=== PATIENT | male | born 1985 | race Caucasian/White ===

== ENCOUNTER 2016-10-08 09:22 | Emergency (ER) | payer SELFPAY ==
[~2016-10-08] VITALS: Ht 177.8 cm; Wt 77.1 kg
[~2016-10-08 09:22] MED LIST: DICY10CA53 PO; DICY20TA3 PO; ONDA4TAB10 SL
[2016-10-08 09:54] VITALS: BP 155/88
--- NOTE | 2016-10-08 10:38 | PHYS DOC ---
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 Patient states that he has had pain for the past 2 months and was previously diagnosed with pancreatitis. The patient states that over the past 24 hours he has had worsening symptoms. The patient was recently seen at [facility] one week ago and was prescribed Vicoprofen which she stated initially help with pain, however he has run out of this medication and has not been getting adequate pain control with use of ibuprofen. Patient rates his pain currently as 9 out of 10. Patient states that the pain stays in his epigastric area of the belly and radiates towards his left. Patient denies any associated fevers. Patient has had intermittent vomiting but has not had any vomiting over the past 24 hours. Patient denies any bloody stools. The patient states that he is scheduled to see a GI specialist on October 11, however due to worsening pain he stated he would not be able to make it this appointment and came to the emergency department for evaluation. Review of Systems Review of Systems Constitutional: Denies fever or chills [] Eyes: Denies change in visual acuity, redness, or eye pain [] HENT: Denies nasal congestion or sore throat [] Respiratory: Denies cough or shortness of breath [] Cardiovascular: Denies chest pain or edema [] GI: Abdominal pain, nausea, denies bloody stools or diarrhea [] : Denies dysuria or hematuria [] Musculoskeletal: Denies back pain or joint pain [] Integument: Denies rash or skin lesions [] Neurologic: Denies headache, focal weakness or sensory changes [] Current Medications Current Medications Current Medications Medications (Trade) Dose Ordered Sig/Kiya Start Time Stop Time Status Last Admin Dose Admin Famotidine (Pepcid) 20 mg 1X ONCE 10/08/16 11:15 10/08/16 11:16 DC 10/08/16 11:11 20 MG Fentanyl Citrate 50 mcg 50 mcg PRN Q15MIN PRN 10/08/16 11:00 10/09/16 10:59 10/08/16 12:05 50 MCG Ondansetron HCl (Zofran) 4 mg 1X ONCE 10/08/16 11:15 10/08/16 11:16 DC 10/08/16 11:11 4 MG Sodium Chloride (Iv Sodium Chloride 0.9% 1000ml Bag) 1,000 ml @ 1,000 mls/hr Q1H 10/08/16 11:15 10/08/16 12:14 DC 10/08/16 11:10 1,000 MLS/HR Allergies Allergies Allergies Coded Allergies Type Severity Reaction Last Updated Verified Penicillins Allergy Intermediate Rash 07/05/16 Yes amoxicillin trihydrate Allergy Intermediate Rash 07/05/16 Yes potassium clavulanate Allergy Intermediate Rash 07/05/16 Yes tramadol Allergy Intermediate "MASSIVE H/A, HIVES, RASH,VOMITING 12/05/15 Yes acetaminophen Adverse Reaction Intermediate nausea 07/05/16 Yes Physical Exam Physical Exam Constitutional: Alert, afebrile, appears in mild to moderate discomfort. [] HENT: Normocephalic, atraumatic, bilateral external ears normal, oropharynx moist, no oral exudates, nose normal. [] Eyes: PERRLA, EOMI, conjunctiva normal, no discharge. [] Neck: Normal range of motion, no tenderness, supple, no stridor. [] Cardiovascular:Heart rate regular rhythm, no murmur [] Lungs & Thorax: Bilateral breath sounds clear to auscultation [] Abdomen: Bowel sounds normal, soft, epigastric and left upper quadrant tenderness to palpation, mild guarding, no rebound tenderness, no masses, no pulsatile masses. [] Skin: Warm, dry, no erythema, no rash. [] Back: No tenderness, no CVA tenderness. [] Extremities: No tenderness, no cyanosis, no clubbing, ROM intact, no edema. [] Neurologic: Alert and oriented X 3, normal motor function, normal sensory function, no focal deficits noted. [] Current Patient Data Vital Signs Vital Signs Date Time Temp Pulse Resp B/P Pulse Ox O2 Delivery O2 Flow Rate FiO2 10/08/16 09:54 97.6 110 20 155/88 97 Room Air 97.6 Lab Values Laboratory Tests Test 10/08/16 09:45 10/08/16 11:00 Urine Collection Type Unknown Urine Color Yellow Urine Clarity Clear Urine pH 6.5 Urine Specific [place] <=1.005 Urine Protein Negativemg/dL (NEG-TRACE) Urine Glucose (UA) Negativemg/dL (NEG) Urine Ketones (Stick) Negativemg/dL (NEG) Urine Blood Negative (NEG) Urine Nitrite Negative (NEG) Urine Bilirubin Negative (NEG) Urine Urobilinogen Dipstick 0.2mg/dL (0.2 mg/dL) Urine Leukocyte Esterase Negative (NEG) Urine RBC 0/HPF (0-2) Urine WBC 0/HPF (0-4) Urine Squamous Epithelial Cells Occ/LPF Urine Bacteria 0/HPF (0-FEW) White Blood Count 5.5x10^3/uL (4.0-11.0) Red Blood Count 4.81x10^6/uL (4.30-5.70) Hemoglobin 15.3g/dL (13.0-17.5) Hematocrit 44.2% (39.0-53.0) Mean Corpuscular Volume 92fL (79-100) Mean Corpuscular Hemoglobin 32pg (25-35) Mean Corpuscular Hemoglobin Concent 35g/dL (31-37) Red Cell Distribution Width 13.4% (11.5-14.5) Platelet Count 206x10^3/uL (140-400) Neutrophils (%) (Auto) 55% (31-73) Lymphocytes (%) (Auto) 36% (24-48) Monocytes (%) (Auto) 8% (0-9) Eosinophils (%) (Auto) 1% (0-3) Basophils (%) (Auto) 1% (0-3) Neutrophils # (Auto) 3.0x10^3uL (1.8-7.7) Lymphocytes # (Auto) 2.0x10^3/uL (1.0-4.8) Monocytes # (Auto) 0.4x10^3/uL (0.0-1.1) Eosinophils # (Auto) 0.0x10^3/uL (0.0-0.7) Basophils # (Auto) 0.0x10^3/uL (0.0-0.2) Sodium Level 141mmol/L (136-145) Potassium Level 4.7mmol/L (3.5-5.1) Chloride Level 105mmol/L (98-107) Carbon Dioxide Level 29mmol/L (21-32) Anion Gap 7 (6-14) Blood Urea Nitrogen 10mg/dL (8-26) Creatinine 1.2mg/dL (0.7-1.3) Estimated GFR (Cockcroft-Gault) 71.1 BUN/Creatinine Ratio 8 (6-20) Glucose Level 82mg/dL (70-99) Calcium Level 9.7mg/dL (8.5-10.1) Total Bilirubin 0.6mg/dL (0.2-1.0) Aspartate Amino Transferase (AST) 31U/L (15-37) Alanine Aminotransferase (ALT) 32U/L (16-63) Alkaline Phosphatase 64U/L (46-116) Total Protein 8.6g/dL (6.4-8.2) H Albumin 3.9g/dL (3.4-5.0) Albumin/Globulin Ratio 0.8 (1.0-1.7) L Lipase 1100U/L (73-393) H Laboratory Tests 10/08/16 11:00 Laboratory Tests 10/08/16 11:00 EKG EKG Not performed [] Radiology/Procedures Radiology/Procedures Not performed [] Course & Med Decision Making Course & Med Decision Making Pertinent Labs and Imaging studies reviewed. (See chart for details) Patient was treated with IV Zofran, fentanyl, and IV fluids. The patient on reevaluation has improvement in pain. The patient's lipase levels were 1100 today. The patient states that he has an appointment in the next 3 days with gastroenterology. Advised the patient to continue that appointment for further evaluation. The patient will be prescribed a small amount of [place] for the next 3 days until he has gone to his appointment. Advised return emergency department for any worsening symptoms. Patient voiced understanding and in agreement with treatment plan. Dragon Disclaimer Dragon Disclaimer This electronic medical record was generated, in whole or in part, using a voice recognition dictation system. Departure Departure Impression: Primary Impression: Pancreatitis Disposition: 01 HOME, SELF-CARE Condition: IMPROVED Referrals: NO PCP (PCP) Patient Instructions: Acute Pancreatitis Additional Instructions: Follow-up with your storage battery charger in 3 days as scheduled. Return to the emergency department for any worsening symptoms. Scripts Hydrocodone/Apap 5-325 ([place] 5-325 Tablet)1 Each Tablet1-2 Tab PO Q4-6HRS PRN PAIN #20 TAB Prov:ISABEL MCGRATH MD 10/08/16 Problem Qualifiers Primary Impression: Pancreatitis Chronicity: chronic Pancreatitis type: unspecified pancreatitis type Qualified Code: K86.1 - Other chronic pancreatitis ISABEL MCGRATH MD Oct 08, 2016 10:38
[2016-10-08 11:09] LABS: BILIRUBIN,URINE NEGATIVE (NEG); GLUCOSE,URINE NEGATIVE (NEG); NITRITE,URINE NEGATIVE (NEG); PH,URINE 6.5; PROTEIN,URINE NEGATIVE (NEG-TRACE); UROBILINOGEN,URINE 0.2 mg/dL (0.2 mg/dL)
[2016-10-08] MEDS: FENTANYL PF 100 MCG/2 ML VIAL. IV PRN ×2 (11:11→12:05)
[2016-10-08] MEDS ORDERED: FAMOTIDINE 20 MG/2 ML VIAL IVP ONE (11:15)
[2016-10-08] MEDS ORDERED: ONDANSETRON PF 4 MG/2 ML VIAL. IV ONE (11:15)
[2016-10-08] MEDS ORDERED: IV NORMAL SALINE 1000ML BAG 1,000 ML IV SCH (11:15)
[2016-10-08 11:18] LABS: BACTERIA,URINE 0 /HPF (0-FEW); RBC,URINE 0 /HPF (0-2); SQUAMOUS EPITHELIAL CELL,UR OCC /LPF; WBC,URINE 0 /HPF (0-4)
[2016-10-08 11:25] LABS: CALCIUM 9.7 mg/dL (8.5-10.1); CREATININE 1.2 mg/dL (0.7-1.3); GFR 71.1; POTASSIUM 4.7 mmol/L (3.5-5.1)
[2016-10-08 11:27] LABS: ALBUMIN 3.9 g/dL (3.4-5.0); ALBUMIN/GLOBULIN RATIO 0.8 (1.0-1.7); TOTAL BILIRUBIN 0.6 mg/dL (0.2-1.0); TOTAL PROTEIN 8.6 g/dL (6.4-8.2)
[2016-10-08 11:31] LABS: BASO % 1 % (0-3); EOS % 1 % (0-3); HEMATOCRIT 44.2 % (39.0-53.0); HEMOGLOBIN 15.3 g/dL (13.0-17.5); LYMPH % 36 % (24-48); MEAN CORPUSCULAR HEMOGLOBIN 32 pg (25-35); MEAN CORPUSCULAR HGB CONC 35 g/dL (31-37); MEAN CORPUSCULAR VOLUME 92 fL (79-100); MONO % 8 % (0-9); NEUT % 55 % (31-73); PLATELET COUNT 206 x10^3/uL (140-400); RED BLOOD COUNT 4.81 x10^6/uL (4.30-5.70); RED CELL DISTRIBUTION WIDTH 13.4 % (11.5-14.5); WHITE BLOOD COUNT 5.5 x10^3/uL (4.0-11.0)
[2016-10-08] MEDS ORDERED: HYDR-971 PO (13:14)
== END 2016-10-08 13:29 | disposition home or self-care (01) ==
LOC: ER 09:22
DX: K85.90 Acute pancreatitis without necrosis or infection, unspecified (principal); K58.9 Irritable bowel syndrome, unspecified; F12.10 Cannabis abuse, uncomplicated; Z88.0 Allergy status to penicillin; Z88.1 Allergy status to other antibiotic agents; Z88.6 Allergy status to analgesic agent; Z88.8 Allergy status to other drugs, medicaments and biological substances
CPT/HCPCS: 36415; 80053; 81001; 83690; 85027; 96361; 96374; 96375; 96376; 99284; J2405; J3010; J7030; S0028

== ENCOUNTER 2016-10-16 13:57 | Inpatient (IN) | payer SELFPAY ==
[~2016-10-16] VITALS: Ht 177.8 cm; Wt 73.9 kg
[~2016-10-16 13:57] MED LIST changes: +HYDR-971 PO
[2016-10-16] MEDS ORDERED: ONDANSETRON PF 4 MG/2 ML VIAL. IV ONE (16:15)
[2016-10-16] MEDS ORDERED: IV NORMAL SALINE 1000ML BAG 1,000 ML IV ONE (16:15)
[2016-10-16] MEDS ORDERED: FENTANYL PF 100 MCG/2 ML VIAL. IV ONE (16:15)
[2016-10-16] MEDS ORDERED: KETOROLAC 15 MG/ML VIAL. IV ONE (16:15)
[2016-10-16 16:36] LABS: ANION GAP 6 (6-14); BLOOD UREA NITROGEN 17 mg/dL (8-26); CALCIUM 9.5 mg/dL (8.5-10.1); CARBON DIOXIDE 29 mmol/L (21-32); CHLORIDE 106 mmol/L (98-107); GFR 87.7; GLUCOSE 88 mg/dL (70-99); POTASSIUM 4.6 mmol/L (3.5-5.1); SODIUM 141 mmol/L (136-145)
[2016-10-16 16:42] LABS: ALBUMIN 4.1 g/dL (3.4-5.0); ALK PHOS 65 U/L (46-116); ALT (SGPT) 24 U/L (16-63); AST (SGOT) 16 U/L (15-37); DIRECT BILIRUBIN < 0.1 mg/dL (0.0-0.2); TOTAL BILIRUBIN 0.7 mg/dL (0.2-1.0); TOTAL PROTEIN 8.1 g/dL (6.4-8.2)
[2016-10-16] MEDS ORDERED: IOHEXOL 300 MG/ML 75 ML VIAL IV ONE (17:45)
[2016-10-16] MEDS ORDERED: CONTRAST GIVEN MC PRN (17:45)
--- NOTE | 2016-10-16 17:53 | PHYS DOC ---
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 Alcohol Use: None Drug Use: Marijuana Social History Narrative: Today,10/16/16 pt denies Drug Use. Adult General Chief Complaint Chief Complaint: ABDOMINAL PAIN HPI HPI Patient is a 30 year old male who presents with left upper quadrant abdominal pain that is constant and severe exactly like his prior pancreatitis pain. States his pain is achy and nonradiating. He was diagnosed with pancreatitis in June 2016 and has had intermittent symptoms since that time. Most notably, he was seen here on 10/08/16 and diagnosed with pancreatitis. At that time, he elected for outpatient therapy. He saw his GI doctor and maintained a clear liquid diet at home. He did have some improvement with his symptoms, but now they're worse in the past few days. States he has run out of pain medication which makes his pain was intolerable now. Denies fever or chills, nausea or vomiting, diarrhea, dysuria. States he is supposed to see a pain clinic for pain management, but he cannot see them until October. Review of Systems Review of Systems Constitutional: Denies fever or chills [] Eyes: Denies change in visual acuity, redness, or eye pain [] HENT: Denies nasal congestion or sore throat [] Respiratory: Denies cough or shortness of breath [] Cardiovascular: No additional information not addressed in HPI [] GI: Denies nausea, vomiting, bloody stools or diarrhea [] : Denies dysuria or hematuria [] Musculoskeletal: Denies back pain or joint pain [] Integument: Denies rash or skin lesions [] Neurologic: Denies headache, focal weakness or sensory changes [] Endocrine: Denies polyuria or polydipsia [] Current Medications Current Medications Current Medications Medications (Trade) Dose Ordered Sig/Kiya Start Time Stop Time Status Last Admin Dose Admin Fentanyl Citrate (Fentanyl 2ml Vial) 75 mcg 1X ONCE 10/16/16 16:15 10/16/16 16:16 DC Info (Do NOT chart on this entry -- for MONITORING) 1 each PRN DAILY PRN 10/16/16 17:45 10/18/16 17:44 Iohexol (Omnipaque 300 Mg/ml) 75 ml 1X ONCE 10/16/16 17:45 10/16/16 17:46 Ketorolac Tromethamine (Toradol) 15 mg 1X ONCE 10/16/16 16:15 10/16/16 16:16 DC Ondansetron HCl (Zofran) 4 mg 1X ONCE 10/16/16 16:15 10/16/16 16:16 DC Sodium Chloride (Iv Sodium Chloride 0.9% 1000ml Bag) 1,000 ml @ 1,000 mls/hr 1X ONCE 10/16/16 16:15 10/16/16 17:14 DC Allergies Allergies Allergies Coded Allergies Type Severity Reaction Last Updated Verified Penicillins Allergy Intermediate Rash 07/05/16 Yes amoxicillin trihydrate Allergy Intermediate Rash 07/05/16 Yes potassium clavulanate Allergy Intermediate Rash 07/05/16 Yes tramadol Allergy Intermediate "MASSIVE H/A, HIVES, RASH,VOMITING 12/05/15 Yes acetaminophen Adverse Reaction Intermediate nausea 07/05/16 Yes Physical Exam Physical Exam Constitutional: Well developed, well nourished, no acute distress, non-toxic appearance. [] HENT: Normocephalic, atraumatic, bilateral external ears normal, oropharynx moist, nose normal. [] Eyes: PERRLA, EOMI. [] Neck: Normal range of motion, supple. [] Cardiovascular:Heart rate regular rhythm [] Lungs & Thorax: Bilateral breath sounds clear to auscultation [] Abdomen: Bowel sounds normal, soft, moderate epigastric and left upper quadrant tenderness tenderness, no guarding or rebound. [] Skin: Warm, dry, no erythema, no rash. [] Back: No tenderness, no CVA tenderness. [] Extremities: ROM intact, no edema. [] Neurologic: Alert and oriented X 3, normal motor function, normal sensory function, no focal deficits noted. [] Psychologic: Affect normal, judgement normal, mood normal. [] Current Patient Data Vital Signs Vital Signs Date Time Temp Pulse Resp B/P Pulse Ox O2 Delivery O2 Flow Rate FiO2 10/16/16 14:50 98.5 91 20 158/85 99 Room Air 98.5 Lab Values Laboratory Tests Test 10/16/16 15:39 Sodium Level 141mmol/L (136-145) Potassium Level 4.6mmol/L (3.5-5.1) Chloride Level 106mmol/L (98-107) Carbon Dioxide Level 29mmol/L (21-32) Anion Gap 6 (6-14) Blood Urea Nitrogen 17mg/dL (8-26) Creatinine 1.0mg/dL (0.7-1.3) Estimated GFR (Cockcroft-Gault) 87.7 Glucose Level 88mg/dL (70-99) Calcium Level 9.5mg/dL (8.5-10.1) Total Bilirubin 0.7mg/dL (0.2-1.0) Direct Bilirubin < 0.1mg/dL (0.0-0.2) Aspartate Amino Transferase (AST) 16U/L (15-37) Alanine Aminotransferase (ALT) 24U/L (16-63) Alkaline Phosphatase 65U/L (46-116) Total Protein 8.1g/dL (6.4-8.2) Albumin 4.1g/dL (3.4-5.0) Lipase 664U/L (73-393) H Laboratory Tests 10/16/16 15:39 Course & Med Decision Making Course & Med Decision Making Pertinent Labs and Imaging studies reviewed. (See chart for details) He has persistent elevation in his lipase and has tried home therapy of which is not controlling his symptoms. Will admit for pain control. Discussed the case with Dr. Castrejon, who will admit and recommends repeat abdominal CT. Dragon Disclaimer Dragon Disclaimer This electronic medical record was generated, in whole or in part, using a voice recognition dictation system. Departure Departure Impression: Primary Impression: Pancreatitis Disposition: 09 ADMITTED INPATIENT Condition: STABLE Referrals: NO PCP (PCP) Problem Qualifiers Primary Impression: Pancreatitis Chronicity: acute Pancreatitis type: unspecified pancreatitis type Acute pancreatitis complication: unspecified Qualified Code: K85.90 - Acute pancreatitis without necrosis or infection, unspecified Derrick COVARRUBIAS MD Oct 16, 2016 17:53
--- NOTE | 2016-10-16 18:21 | RAD ---
PROCEDURE CT abdomen and pelvis with contrast HISTORY Left upper abdominal pain nausea and elevated lipase TECHNIQUE After IV infusion of95 cc of Optiray-320, helical CT scanning of the abdomen and pelvis was performed.GI contrast was not administered. COMPARISON July 05, 2016 FINDINGS The liveer is homogeous in appearance and normal in size. The spleen is unremarkable and normal in size. The pancreas is homogeneous in appearance and no focal enlargement is seen. The gallbladder appears normal and no intra or extrahepatic biliary ductal dilatation is seen. No focal aneurysmal dilatation of the abdominal aorta is seen. No enlarged abdominal or pelvic lymphadenopathy is seen. No soft tissue mass is seen. No obstructive bowel pattern or bowel wall thickening or inflammatory change is seen. No free intraperitoneal fluid or abscess or free intraperitoneal air is seen. The lung bases are clear. Both kidneys are functioning and no hydronephrosis or renal mass or perinephric fluid collection is seen. The urinary bladder is partially collapsed. Apparent mild wall thickening is felt to be secondary nondistention. No adrenal masses are seen. No osteolytic process is seen. The appendix is normal. IMPRESSION No significant CT abnormality of the abdomen or the pelvis is seen. Electronically signed by: Juan Carranza MD (Oct 16, 2016 18:20:57)
[2016-10-16] MEDS ORDERED: ONDANSETRON PF 4 MG/2 ML VIAL. IV PRN ×2 (19:00→20:00)
[2016-10-16 19:39] VITALS: BP 151/94
[2016-10-16] MEDS ORDERED: ACETAMINOPHEN 325 MG TABLET. PO PRN (20:00)
[2016-10-16] MEDS ORDERED: hydrALAZINE 20 MG/ML VIAL. IVP PRN (20:00)
[2016-10-16] MEDS ORDERED: HYDROCODONE/APAP 5/325MG TABLET. PO PRN (20:00)
[2016-10-16] MEDS ORDERED: MORPHINE SULFATE 2 MG/ML DISP.SYRIN. IV PRN (20:00)
[2016-10-16] MEDS ORDERED: ALBUTEROL SULFATE 2.5 MG/3 ML NEBU. NEB PRN (20:00)
[2016-10-16] MEDS ORDERED: NICOTINE 21MG PATCH. TD PRN (20:15)
[2016-10-16] MEDS: IV NORMAL SALINE 1000ML BAG 1,000 ML IV SCH (20:42)
--- NOTE | 2016-10-16 22:19 | PDOC ---
Provider Note Provider Note HP dictated. HANNA GARCIA MD Oct 16, 2016 22:19
[2016-10-16] MEDS: FENTANYL PF 100 MCG/2 ML VIAL. IV PRN (22:24)
[2016-10-16 23:00] VITALS: BP 139/87
--- NOTE | 2016-10-16 23:09 | HP ---
ADMIT DATE: 10/16/2016 TIME: 07:20 p.m. CHIEF COMPLAINT: Abdominal pain. HISTORY OF PRESENT ILLNESS: A 30-year-old male patient presented to the ER with epigastric and left upper quadrant abdominal pain, which is similar to his previous pancreatitis pain. The patient was first diagnosed with pancreatitis in 06/2016, and later, he is having intermittent pain and he was following a GI doctor who started him on a clear liquid diet; however, he could not able to control his pain as the patient did not have a family doctor. Today, the patient says his pain is intractable in nature and located in the epigastric and left upper quadrant, sometimes radiating to the back, controlled with IV pain medications in the ER. He denies any noncompliance. He stopped drinking alcohol from 05/2016. PAST MEDICAL HISTORY: Irritable bowel syndrome, pancreatitis and questionable cancer. 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 PERSONAL HISTORY: Smokes marijuana and cigarettes. No alcohol. FAMILY HISTORY: Cancer from maternal side. REVIEW OF SYSTEMS: CONSTITUTIONAL: No fever or chills. EYES: No recent vision changes. SKIN: No rash or itching. CARDIOVASCULAR: No chest pain, syncope, palpitations or edema. RESPIRATORY: No shortness of breath, cough. GASTROINTESTINAL: Abdominal pain and nausea. NEUROLOGICAL: No headache, paralysis. ENDOCRINOLOGIC: No cold or heat intolerance. GENITOURINARY: No burning with urination, no urgency. MUSCULOSKELETAL: No back pain or joint pain. LYMPHATICS: No enlarged nodes. PSYCHIATRIC: No anxiety or depression. HOME MEDICATIONS: Reviewed and reconciled. Please see MRAD. ALLERGIES: PENICILLIN, AMOXICILLIN, POTASSIUM, TRAMADOL AND ACETAMINOPHEN. PHYSICAL EXAMINATION: GENERAL: No apparent distress. HEENT: Head normocephalic, atraumatic. Eyes: PERRLA, EOMI. NECK: Supple. LUNGS: Clear to auscultation. HEART: Regular rate and rhythm; S1, S2 present; pulses intact. ABDOMEN: Epigastric tenderness present. Bowel sounds present. No guarding, no rigidity. EXTREMITIES: No cyanosis or edema. NEUROLOGIC: Normal speech and normal tone; alert and oriented. PSYCHIATRIC: Normal affect, normal mood. SKIN: No ulceration. VITAL SIGNS: Temperature 98.5, pulse is 91, respirations 20, blood pressure 158/85, pulse ox 99% on room air. LABORATORY FINDINGS: Sodium 141, potassium 4.6, chloride 106, carbon dioxide 20, anion gap is 6, BUN is 17, creatinine 1.0, and lipase 664. CBC is not done. IMAGING STUDIES: CT of the abdomen and pelvis showed no significant CT changes. ASSESSMENT: 1. [id number] pancreatitis, intractable pain. 2. History of irritable bowel syndrome. 3. Nicotine use. PLAN: 1. Admit the patient and keep him n.p.o. ____ IV hydration at 100 mL per hour. 2. Consultation, Gastroenterology for further recommendations. 3. Imaging studies did not show any pancreatic pseudocyst. 4. Pain control with IV morphine. Avoid CO2 narcosis. 5. If symptoms improve, try clear liquids from a.m. 6. Prognosis guarded. Nicotine patch p.r.n. HANNA GARCIA MD DR: JACE/niranjan JOB#: [id number] / [id number]
[2016-10-17] MEDS: FENTANYL PF 100 MCG/2 ML VIAL. IV PRN ×4 (01:00→10:41)
[2016-10-17 03:00] VITALS: BP 116/69
[2016-10-17] MEDS: IV NORMAL SALINE 1000ML BAG 1,000 ML IV SCH ×2 (04:54→16:00)
[2016-10-17 05:04] LABS: BASO % 0 % (0-3); EOS % 2 % (0-3); HEMATOCRIT 40.3 % (39.0-53.0); HEMOGLOBIN 13.6 g/dL (13.0-17.5); LYMPH # 2.5 x10^3/uL (1.0-4.8); LYMPH % 44 % (24-48); MEAN CORPUSCULAR HEMOGLOBIN 31 pg (25-35); MEAN CORPUSCULAR HGB CONC 34 g/dL (31-37); MEAN CORPUSCULAR VOLUME 92 fL (79-100); MONO % 7 % (0-9); NEUT % 47 % (31-73); PLATELET COUNT 171 x10^3/uL (140-400); RED BLOOD COUNT 4.38 x10^6/uL (4.30-5.70); RED CELL DISTRIBUTION WIDTH 13.1 % (11.5-14.5); WHITE BLOOD COUNT 5.9 x10^3/uL (4.0-11.0)
[2016-10-17 05:35] LABS: CALCIUM 9.1 mg/dL (8.5-10.1); GFR 87.7; POTASSIUM 4.2 mmol/L (3.5-5.1)
[2016-10-17 07:48] VITALS: BP 124/74
[2016-10-17] MEDS: DICYCLOMINE HCL 10 MG CAPSULE PO SCH ×3 (08:15→16:40)
--- NOTE | 2016-10-17 09:45 | PDOC2 ---
GI CONSULT Reason For Consult: Pancreatitis HPI: HPI: 30 y/o male w/ h/o alcoholic pancreatitis diagnosed in 06/2016. Since then has had ongoing issues w/ LUQ pain radiating to upper back and vomiting. Was seen in the ER on 10/08/16 and returned last night. On this occasion, lipase 664 ( was 34029 last week) w/ normal LFTs. CT w/ IV contrast shows normal pancreas. Last week tried to keep to a liquid diet but got to hungry and started eating [place] food which made symptoms worse. Has been NPO this morning and feels hungry. Used to drink whiskey heavily but has been sober x 6 months. H/o reflux from age 17 that is rarely bothersome, untreated. No previous EGD. H/o IBS w/ alternating constipation and diarrhea. Reports three previous colonoscopies for this. Has tried ibuprofen 800mg BID at home but found hydrocodone more effective for pain. Denies hematemesis, hematochezia, melena. Used to work at [employer] but had to quit due to ongoing symptoms; is now unable to walk the 5 miles to work. PMH: PMH: IBS-M, removal of acoustic neuroma, eye surgery FH: Family History: No pertinent hx Social History: Smoke: <1 pack per day ALCOHOL: other (previous drank boubon - "a handle plus a 1/5" daily - sober x 6 months) Drugs: Other (previous marijuana) ROS: GEN: Denies fevers, chills, sweats HEENT: Denies blurred vision, sore throat CV: Denies chest pain RESP: Denies shortness of air, cough GI: Per HPI : Denies hematuria, dysuria ENDO: Denies weight changes NEURO: Denies confusion, dizziness MSK: Denies weakness, joint pain/swelling SKIN: Denies jaundice, pruritus VItals: Vitals: Vital Signs Date Time Temp Pulse Resp B/P Pulse Ox O2 Delivery O2 Flow Rate FiO2 10/17/16 08:55 95 Room Air 10/17/16 07:48 97.6 85 16 124/74 97.6 Labs: Labs: Laboratory Tests Test 10/16/16 15:39 10/17/16 04:30 10/17/16 04:35 Sodium Level 141mmol/L (136-145) 144mmol/L (136-145) Potassium Level 4.6mmol/L (3.5-5.1) 4.2mmol/L (3.5-5.1) Chloride Level 106mmol/L (98-107) 109mmol/L (98-107) Carbon Dioxide Level 29mmol/L (21-32) 27mmol/L (21-32) Anion Gap 6 (6-14) 8 (6-14) Blood Urea Nitrogen 17mg/dL (8-26) 14mg/dL (8-26) Creatinine 1.0mg/dL (0.7-1.3) 1.0mg/dL (0.7-1.3) Estimated GFR (Cockcroft-Gault) 87.7 87.7 Glucose Level 88mg/dL (70-99) 90mg/dL (70-99) Calcium Level 9.5mg/dL (8.5-10.1) 9.1mg/dL (8.5-10.1) Total Bilirubin 0.7mg/dL (0.2-1.0) Direct Bilirubin < 0.1mg/dL (0.0-0.2) Aspartate Amino Transf (AST/SGOT) 16U/L (15-37) Alanine Aminotransferase (ALT/SGPT) 24U/L (16-63) Alkaline Phosphatase 65U/L (46-116) Total Protein 8.1g/dL (6.4-8.2) Albumin 4.1g/dL (3.4-5.0) Lipase 664U/L (73-393) White Blood Count 5.9x10^3/uL (4.0-11.0) Red Blood Count 4.38x10^6/uL (4.30-5.70) Hemoglobin 13.6g/dL (13.0-17.5) Hematocrit 40.3% (39.0-53.0) Mean Corpuscular Volume 92fL (79-100) Mean Corpuscular Hemoglobin 31pg (25-35) Mean Corpuscular Hemoglobin Concent 34g/dL (31-37) Red Cell Distribution Width 13.1% (11.5-14.5) Platelet Count 171x10^3/uL (140-400) Neutrophils (%) (Auto) 47% (31-73) Lymphocytes (%) (Auto) 44% (24-48) Monocytes (%) (Auto) 7% (0-9) Eosinophils (%) (Auto) 2% (0-3) Basophils (%) (Auto) 0% (0-3) Neutrophils # (Auto) 2.7x10^3uL (1.8-7.7) Lymphocytes # (Auto) 2.5x10^3/uL (1.0-4.8) Monocytes # (Auto) 0.4x10^3/uL (0.0-1.1) Eosinophils # (Auto) 0.1x10^3/uL (0.0-0.7) Basophils # (Auto) 0.0x10^3/uL (0.0-0.2) Allergies: Coded Allergies: Penicillins (Verified Allergy, Intermediate, Rash, 07/05/16) amoxicillin trihydrate (Verified Allergy, Intermediate, Rash, 07/05/16) potassium clavulanate (Verified Allergy, Intermediate, Rash, 07/05/16) tramadol (Verified Allergy, Intermediate, "MASSIVE H/A, HIVES, RASH, VOMITING, 12/05/15) acetaminophen (Verified Adverse Reaction, Intermediate, nausea, 07/05/16) Medications: Current Medications Medications (Trade) Dose Ordered Sig/Kiya Route PRN Reason Start Time Stop Time Status Last Admin Dose Admin Sodium Chloride (Iv Sodium Chloride 0.9% 1000ml Bag) 1,000 ml @ 1,000 mls/hr 1X ONCE IV 10/16/16 16:15 10/16/16 17:14 DC 10/16/16 17:39 Ondansetron HCl (Zofran) 4 mg 1X ONCE IV 10/16/16 16:15 10/16/16 16:16 DC 10/16/16 17:40 Fentanyl Citrate (Fentanyl 2ml Vial) 75 mcg 1X ONCE IV 10/16/16 16:15 10/16/16 16:16 DC 10/16/16 16:15 Ketorolac Tromethamine (Toradol) 15 mg 1X ONCE IV 10/16/16 16:15 10/16/16 16:16 DC 10/16/16 17:44 Iohexol (Omnipaque 300 Mg/ml) 75 ml 1X ONCE IV 10/16/16 17:45 10/16/16 17:46 DC 10/16/16 17:56 Fentanyl Citrate (Fentanyl 2ml Vial) 50 mcg PRN Q2HR PRN IV PAIN 10/16/16 19:00 10/17/16 08:16 Morphine Sulfate 2 mg 2 mg PRN Q2HR PRN IV PAIN 10/16/16 20:00 10/16/16 20:41 Sodium Chloride (Iv Sodium Chloride 0.9% 1000ml Bag) 1,000 ml @ 100 mls/hr Q10H IV 10/16/16 20:00 10/17/16 04:54 Nicotine (Nicoderm Cq 21mg) 1 patch PRN DAILY PRN TD SMOKING CESSATION 10/16/16 20:15 10/16/16 21:31 Imaging: Imaging: CT A/P w/ IV contrast FINDINGS The liver is homogenous in appearance and normal in size. The spleen is unremarkable and normal in size. The pancreas is homogeneous in appearance and no focal enlargement is seen. The gallbladder appears normal and no intra or extrahepatic biliary ductal dilatation is seen. No focal aneurysmal dilatation of the abdominal aorta is seen. No enlarged abdominal or pelvic lymphadenopathy is seen. No soft tissue mass is seen. No obstructive bowel pattern or bowel wall thickening or inflammatory change is seen. No free intraperitoneal fluid or abscess or free intraperitoneal air is seen. The lung bases are clear. Both kidneys are functioning and no hydronephrosis or renal mass or perinephric fluid collection is seen. The urinary bladder is partially collapsed. Apparent mild wall thickening is felt to be secondary nondistention. No adrenal masses are seen. No osteolytic process is seen. The appendix is normal. IMPRESSION No significant CT abnormality of the abdomen or the pelvis is seen. PE: GEN: NAD HEENT: Atraumatic, eyes red LUNGS: CTAB HEART: RRR ABD: NABS, S/ND, LUQ and epigastric discomfort EXTREMITY: No edema SKIN: No rashes, no jaundice NEURO/PSYCH: A & O 3 A/P: A/P: Elevated lipase, h/o alcohol abuse -lipase improved from last ER visit -diagnosed w/ alcoholic pancreatitis in 06/2016 -sober x 6 months -ongoing issues w/ upper abd pain and vomiting H/o IBS-M -reports three previous colonoscopies H/o GERD -- Medical therapy for suspected alcoholic pancreatitis. Okay to try clears today. Will start empiric H2 arsen considering occasional GERD symptoms and h/o NSAID use. CRESCENCIO MALDONADO Oct 17, 2016 09:45
[2016-10-17] MEDS ORDERED: NICOTINE 14MG PATCH. TD PRN (10:30)
[2016-10-17 10:46] VITALS: BP 138/84
[2016-10-17 14:43] VITALS: BP 113/68
--- NOTE | 2016-10-17 15:08 | PDOC ---
PROGRESS NOTES Chief Complaint Chief Complaint acute abdominal pain Elevated lipase, h/o prior alcohol abuse GI consult following IBS? nausea and vomiting GERD History of Present Illness History of Present Illness hold Nsaid start PPI advance diet if tolerable pt OOB to chair, looks better than described yesterday Vitals Vitals Vital Signs Date Time Temp Pulse Resp B/P Pulse Ox O2 Delivery O2 Flow Rate FiO2 10/17/16 15:01 Room Air 10/17/16 14:43 97.7 74 16 113/68 96 97.7 Physical Exam General: Alert, Oriented X3, Cooperative Heart: Regular rate, Normal S1 Lungs: Clear, Wheezing Abdomen: Soft Extremities: No clubbing Labs LABS Laboratory Tests Test 10/16/16 15:39 10/17/16 04:30 10/17/16 04:35 Sodium Level 141mmol/L (136-145) 144mmol/L (136-145) Potassium Level 4.6mmol/L (3.5-5.1) 4.2mmol/L (3.5-5.1) Chloride Level 106mmol/L (98-107) 109mmol/L (98-107) Carbon Dioxide Level 29mmol/L (21-32) 27mmol/L (21-32) Anion Gap 6 (6-14) 8 (6-14) Blood Urea Nitrogen 17mg/dL (8-26) 14mg/dL (8-26) Creatinine 1.0mg/dL (0.7-1.3) 1.0mg/dL (0.7-1.3) Estimated GFR (Cockcroft-Gault) 87.7 87.7 Glucose Level 88mg/dL (70-99) 90mg/dL (70-99) Calcium Level 9.5mg/dL (8.5-10.1) 9.1mg/dL (8.5-10.1) Total Bilirubin 0.7mg/dL (0.2-1.0) Direct Bilirubin < 0.1mg/dL (0.0-0.2) Aspartate Amino Transf (AST/SGOT) 16U/L (15-37) Alanine Aminotransferase (ALT/SGPT) 24U/L (16-63) Alkaline Phosphatase 65U/L (46-116) Total Protein 8.1g/dL (6.4-8.2) Albumin 4.1g/dL (3.4-5.0) Lipase 664U/L (73-393) 296U/L (73-393) White Blood Count 5.9x10^3/uL (4.0-11.0) Red Blood Count 4.38x10^6/uL (4.30-5.70) Hemoglobin 13.6g/dL (13.0-17.5) Hematocrit 40.3% (39.0-53.0) Mean Corpuscular Volume 92fL (79-100) Mean Corpuscular Hemoglobin 31pg (25-35) Mean Corpuscular Hemoglobin Concent 34g/dL (31-37) Red Cell Distribution Width 13.1% (11.5-14.5) Platelet Count 171x10^3/uL (140-400) Neutrophils (%) (Auto) 47% (31-73) Lymphocytes (%) (Auto) 44% (24-48) Monocytes (%) (Auto) 7% (0-9) Eosinophils (%) (Auto) 2% (0-3) Basophils (%) (Auto) 0% (0-3) Neutrophils # (Auto) 2.7x10^3uL (1.8-7.7) Lymphocytes # (Auto) 2.5x10^3/uL (1.0-4.8) Monocytes # (Auto) 0.4x10^3/uL (0.0-1.1) Eosinophils # (Auto) 0.1x10^3/uL (0.0-0.7) Basophils # (Auto) 0.0x10^3/uL (0.0-0.2) Assessment and Plan Assessmemt and Plan DC if able to isaac full liquids in AM Problems Medical Problems: (1) Pancreatitis Status: Acute Problems: Comment Review of Relevant I have reviewed the following items evita (where applicable) has been applied. Labs Laboratory Tests Test 10/16/16 15:39 10/17/16 04:30 10/17/16 04:35 Sodium Level 141mmol/L (136-145) 144mmol/L (136-145) Potassium Level 4.6mmol/L (3.5-5.1) 4.2mmol/L (3.5-5.1) Chloride Level 106mmol/L (98-107) 109mmol/L (98-107) Carbon Dioxide Level 29mmol/L (21-32) 27mmol/L (21-32) Anion Gap 6 (6-14) 8 (6-14) Blood Urea Nitrogen 17mg/dL (8-26) 14mg/dL (8-26) Creatinine 1.0mg/dL (0.7-1.3) 1.0mg/dL (0.7-1.3) Estimated GFR (Cockcroft-Gault) 87.7 87.7 Glucose Level 88mg/dL (70-99) 90mg/dL (70-99) Calcium Level 9.5mg/dL (8.5-10.1) 9.1mg/dL (8.5-10.1) Total Bilirubin 0.7mg/dL (0.2-1.0) Direct Bilirubin < 0.1mg/dL (0.0-0.2) Aspartate Amino Transf (AST/SGOT) 16U/L (15-37) Alanine Aminotransferase (ALT/SGPT) 24U/L (16-63) Alkaline Phosphatase 65U/L (46-116) Total Protein 8.1g/dL (6.4-8.2) Albumin 4.1g/dL (3.4-5.0) Lipase 664U/L (73-393) 296U/L (73-393) White Blood Count 5.9x10^3/uL (4.0-11.0) Red Blood Count 4.38x10^6/uL (4.30-5.70) Hemoglobin 13.6g/dL (13.0-17.5) Hematocrit 40.3% (39.0-53.0) Mean Corpuscular Volume 92fL (79-100) Mean Corpuscular Hemoglobin 31pg (25-35) Mean Corpuscular Hemoglobin Concent 34g/dL (31-37) Red Cell Distribution Width 13.1% (11.5-14.5) Platelet Count 171x10^3/uL (140-400) Neutrophils (%) (Auto) 47% (31-73) Lymphocytes (%) (Auto) 44% (24-48) Monocytes (%) (Auto) 7% (0-9) Eosinophils (%) (Auto) 2% (0-3) Basophils (%) (Auto) 0% (0-3) Neutrophils # (Auto) 2.7x10^3uL (1.8-7.7) Lymphocytes # (Auto) 2.5x10^3/uL (1.0-4.8) Monocytes # (Auto) 0.4x10^3/uL (0.0-1.1) Eosinophils # (Auto) 0.1x10^3/uL (0.0-0.7) Basophils # (Auto) 0.0x10^3/uL (0.0-0.2) Laboratory Tests Test 10/16/16 15:39 10/17/16 04:30 10/17/16 04:35 Sodium Level 141mmol/L (136-145) 144mmol/L (136-145) Potassium Level 4.6mmol/L (3.5-5.1) 4.2mmol/L (3.5-5.1) Chloride Level 106mmol/L (98-107) 109mmol/L (98-107) Carbon Dioxide Level 29mmol/L (21-32) 27mmol/L (21-32) Anion Gap 6 (6-14) 8 (6-14) Blood Urea Nitrogen 17mg/dL (8-26) 14mg/dL (8-26) Creatinine 1.0mg/dL (0.7-1.3) 1.0mg/dL (0.7-1.3) Estimated GFR (Cockcroft-Gault) 87.7 87.7 Glucose Level 88mg/dL (70-99) 90mg/dL (70-99) Calcium Level 9.5mg/dL (8.5-10.1) 9.1mg/dL (8.5-10.1) Total Bilirubin 0.7mg/dL (0.2-1.0) Direct Bilirubin < 0.1mg/dL (0.0-0.2) Aspartate Amino Transf (AST/SGOT) 16U/L (15-37) Alanine Aminotransferase (ALT/SGPT) 24U/L (16-63) Alkaline Phosphatase 65U/L (46-116) Total Protein 8.1g/dL (6.4-8.2) Albumin 4.1g/dL (3.4-5.0) Lipase 664U/L (73-393) 296U/L (73-393) White Blood Count 5.9x10^3/uL (4.0-11.0) Red Blood Count 4.38x10^6/uL (4.30-5.70) Hemoglobin 13.6g/dL (13.0-17.5) Hematocrit 40.3% (39.0-53.0) Mean Corpuscular Volume 92fL (79-100) Mean Corpuscular Hemoglobin 31pg (25-35) Mean Corpuscular Hemoglobin Concent 34g/dL (31-37) Red Cell Distribution Width 13.1% (11.5-14.5) Platelet Count 171x10^3/uL (140-400) Neutrophils (%) (Auto) 47% (31-73) Lymphocytes (%) (Auto) 44% (24-48) Monocytes (%) (Auto) 7% (0-9) Eosinophils (%) (Auto) 2% (0-3) Basophils (%) (Auto) 0% (0-3) Neutrophils # (Auto) 2.7x10^3uL (1.8-7.7) Lymphocytes # (Auto) 2.5x10^3/uL (1.0-4.8) Monocytes # (Auto) 0.4x10^3/uL (0.0-1.1) Eosinophils # (Auto) 0.1x10^3/uL (0.0-0.7) Basophils # (Auto) 0.0x10^3/uL (0.0-0.2) Medications Current Medications Sodium Chloride (Iv Sodium Chloride 0.9% 1000ml Bag) 1,000 ml @ 1,000 mls/hr 1X ONCE IV Last administered on 10/16/16 17:39; Start 10/16/16 at 16:15; Stop 10/16/16 at 17:14; Status DC Ondansetron HCl (Zofran) 4 mg 1X ONCE IV Last administered on 10/16/16 17:40 ; Start 10/16/16 at 16:15; Stop 10/16/16 at 16:16; Status DC Fentanyl Citrate (Fentanyl 2ml Vial) 75 mcg 1X ONCE IV Last administered on 16:15; Start 10/16/16 at 16:15; Stop 10/16/16 at 16:16; Status DC Ketorolac Tromethamine (Toradol) 15 mg 1X ONCE IV Last administered on 17:44; Start 10/16/16 at 16:15; Stop 10/16/16 at 16:16; Status DC Iohexol (Omnipaque 300 Mg/ml) 75 ml 1X ONCE IV Last administered on 10/16/16 17:56; Start 10/16/16 at 17:45; Stop 10/16/16 at 17:46; Status DC Info (Do NOT chart on this entry -- for MONITORING) 1 each PRN DAILY PRN MC SEE COMMENTS; Start 10/16/16 at 17:45; Stop 10/18/16 at 17:44 Ondansetron HCl (Zofran) 4 mg PRN Q8HRS PRN IV NAUSEA/VOMITING Last administered on 10/17/16 09:41; Start 10/16/16 at 19:00; Stop 10/17/16 at 18:59 Fentanyl Citrate (Fentanyl 2ml Vial) 50 mcg PRN Q2HR PRN IV PAIN Last administered on 10/17/16 10:41; Start 10/16/16 at 19:00 Acetaminophen (Tylenol) 325 mg PRN Q6HRS PRN PO MILD PAIN / TEMP; Start at 20:00 Acetaminophen/ Hydrocodone Bitart (Lortab 5/325) 1 tab PRN Q6HRS PRN PO MODERATE TO SEVERE PAIN Last administered on 10/17/16 15:01; Start 10/16/16 at 20:00 Hydralazine HCl (Apresoline) 10 mg PRN Q4HRS PRN IVP ELEVATED BP, SEE COMMENTS ; Start 10/16/16 at 20:00 Ondansetron HCl (Zofran) 4 mg PRN Q8HRS PRN IV NAUSEA/VOMITING; Start 10/16/16 at 20:00 Albuterol Sulfate (Ventolin Neb Soln) 2.5 mg PRN Q4HRS PRN NEB SHORTNESS OF BREATH; Start 10/16/16 at 20:00 Morphine Sulfate 2 mg 2 mg PRN Q2HR PRN IV PAIN Last administered on 10/16/16 20:41; Start 10/16/16 at 20:00 Sodium Chloride (Iv Sodium Chloride 0.9% 1000ml Bag) 1,000 ml @ 100 mls/hr Q10H IV Last administered on 10/17/16t 04:54; Start 10/16/16 at 20:00 Nicotine (Nicoderm Cq 21mg) 1 patch PRN DAILY PRN TD SMOKING CESSATION Last administered on 10/16/16 21:31; Start 10/16/16 at 20:15; Stop 10/17/16 at 10:16 ; Status DC Dicyclomine HCl (Bentyl) 20 mg QID PO ; Start 10/17/16 at 09:00 Famotidine (Pepcid) 20 mg QHS PO ; Start 10/17/16 at 21:00 Nicotine (Nicoderm Cq 14mg) 1 patch PRN DAILY PRN TD SMOKING CESSATION; Start 10/17/16 at 10:30 Active Scripts Active [place] 5-325 Tablet (Acetaminophen/Hydrocodone Bitart) 1 Each Tablet 1-2 Tab PO Q4-6HRS PRN Bentyl (Dicyclomine Hcl) 10 Mg Capsule 20 Mg PO QID Dicyclomine Hcl 20 Mg Tablet 1 Tab PO QID Dicyclomine Hcl 20 Mg Tablet 1 Tab PO QID Zofran Odt (Ondansetron) 4 Mg Tab.rapdis 1 Tab SL Q8HRS PRN Vitals/I & O Vital Sign - Last 24 Hours 10/16/16 10/16/16 10/16/16 10/16/16 16:15 16:45 19:39 20:00 Temp 98.1 98.1 Pulse 75 Resp 20 16 18 B/P 151/94 Pulse Ox 97 97 97 O2 Delivery Room Air Room Air Room Air Room Air 10/16/16 10/16/16 10/16/16 10/16/16 20:41 21:11 22:24 23:00 Temp 98.0 98.0 Pulse 79 Resp 16 16 16 18 B/P 139/87 Pulse Ox 97 97 97 97 O2 Delivery Room Air 10/17/16 10/17/16 10/17/16 10/17/16 01:00 02:38 03:00 04:53 Temp 98.1 98.1 Pulse 85 Resp 16 18 16 B/P 116/69 Pulse Ox 97 96 96 O2 Delivery Room Air Room Air Room Air 10/17/16 10/17/16 10/17/16 10/17/16 05:23 07:48 08:00 08:16 Temp 97.6 97.6 Pulse 85 Resp 16 16 B/P 124/74 Pulse Ox 95 O2 Delivery Room Air Room Air Room Air 10/17/16 10/17/16 10/17/16 10/17/16 10:41 10:46 11:20 14:43 Temp 98.2 97.7 98.2 97.7 Pulse 86 74 Resp 16 16 B/P 138/84 113/68 Pulse Ox 95 98 98 96 O2 Delivery Room Air Room Air Room Air Room Air 10/17/16 15:01 O2 Delivery Room Air Intake and Output 10/16/16 10/16/16 10/17/16 15:00 23:00 07:00 Intake Total 1000 ml 120 ml Balance 1000 ml 120 ml RIO PRO MD Oct 17, 2016 15:08
[2016-10-17] MEDS ORDERED: HYDROCODONE/APAP 5/325MG TABLET. PO ONE (19:15)
[2016-10-17] MEDS ORDERED: FAMOTIDINE 20 MG TABLET. PO SCH (21:00)
== END 2016-10-17 17:30 | disposition home or self-care (01) | DRG 440 ==
LOC: ER 13:57 → 4 NORTH 17:15
PROVIDERS: ADMIT Internal Medicine; ATTEND Internal Medicine
DX: K85.90 Acute pancreatitis without necrosis or infection, unspecified (principal); K86.1 Other chronic pancreatitis; K58.9 Irritable bowel syndrome, unspecified; K21.9 Gastro-esophageal reflux disease without esophagitis; F10.10 Alcohol abuse, uncomplicated; F12.90 Cannabis use, unspecified, uncomplicated; F17.210 Nicotine dependence, cigarettes, uncomplicated; K59.00 Constipation, unspecified; R26.2 Difficulty in walking, not elsewhere classified; Z88.1 Allergy status to other antibiotic agents; Z88.5 Allergy status to narcotic agent; Z88.0 Allergy status to penicillin; Z88.8 Allergy status to other drugs, medicaments and biological substances; Z92.21 Personal history of antineoplastic chemotherapy
CPT/HCPCS: 36415; 74177; 80048; 80076; 83690; 85027; 96361; 96374; 96375; 99406; J1885; J2270; J2405; J3010; J7030; Q9967; 99285-25

== ENCOUNTER 2016-11-10 20:50 | Emergency (ER) | payer SELFPAY ==
--- NOTE | 2016-11-10 21:56 | ED.ADGEN ---
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 Patient has a history of pancreatitis. He states these are his usual symptoms. He ran out of his pain medications at home. He does not see his pain management doctor for another 48 hours. Review of Systems Review of Systems Constitutional: Denies fever or chills. [] Eyes: Denies change in visual acuity. [] HENT: Denies nasal congestion or sore throat. [] Respiratory: Denies cough or shortness of breath. [] Cardiovascular: Denies chest pain or edema. [] GI: Denies abdominal pain, nausea, vomiting, bloody stools or diarrhea. [] : Denies dysuria. [] Musculoskeletal: Denies back pain or joint pain. [] Integument: Denies rash. [] Neurologic: Denies headache, focal weakness or sensory changes. [] Endocrine: Denies polyuria or polydipsia. [] Lymphatic: Denies swollen glands. [] Psychiatric: Denies depression or anxiety. [] Current Medications Current Medications Current Medications Medications (Trade) Dose Ordered Sig/Kiya Start Time Stop Time Status Last Admin Dose Admin Fentanyl Citrate (Fentanyl 2ml Vial) 75 mcg 1X ONCE 11/10/16 23:00 11/10/16 23:01 DC Ondansetron HCl 4 mg 4 mg 1X ONCE 11/10/16 22:15 11/10/16 22:16 DC 11/10/16 22:07 4 MG Sodium Chloride (Iv Sodium Chloride 0.9% 1000ml Bag) 1,000 ml @ 1,000 mls/hr Q1H 11/10/16 22:15 11/10/16 23:14 DC 11/10/16 22:03 1,000 MLS/HR Allergies Allergies Allergies Coded Allergies Type Severity Reaction Last Updated Verified Penicillins Allergy Intermediate Rash 07/05/16 Yes amoxicillin trihydrate Allergy Intermediate Rash 07/05/16 Yes potassium clavulanate Allergy Intermediate Rash 07/05/16 Yes tramadol Allergy Intermediate "MASSIVE H/A, HIVES, RASH,VOMITING 4/11/16 Yes acetaminophen Adverse Reaction Intermediate nausea 07/05/16 Yes Physical Exam Physical Exam Constitutional: Well developed, well nourished, no acute distress, non-toxic appearance. [] HENT: Normocephalic, atraumatic, bilateral external ears normal, oropharynx moist, no oral exudates, nose normal. [] Eyes: PERRLA, EOMI, conjunctiva normal, no discharge. [] Neck: Normal range of motion, no tenderness, supple, no stridor. [] Cardiovascular:Heart rate regular rhythm, no murmur [] Lungs & Thorax: Bilateral breath sounds clear to auscultation [] Abdomen: Bowel sounds normal, soft, epigastric and left upper quadrant tenderness without peritoneal signs, no masses, no pulsatile masses. [] Skin: Warm, dry, no erythema, no rash. [] Back: No tenderness, no CVA tenderness. [] Extremities: No tenderness, no cyanosis, no clubbing, ROM intact, no edema. [] Neurologic: Alert and oriented X 3, normal motor function, normal sensory function, no focal deficits noted. [] Psychologic: Affect normal, judgement normal, mood normal. [] Current Patient Data Vital Signs Vital Signs Date Time Temp Pulse Resp B/P Pulse Ox O2 Delivery O2 Flow Rate FiO2 11/10/16 22:08 17 98 Room Air 11/10/16 20:54 97.8 107 160/78 97.8 EKG EKG [] Radiology/Procedures Radiology/Procedures [] Course & Med Decision Making Course & Med Decision Making Pertinent Labs and Imaging studies reviewed. (See chart for details) Patient defers workup at this time. He believes that if we can get his pain under control he will be okay to go home until he can see his pain management doctor. [] Dragon Disclaimer Dragon Disclaimer This electronic medical record was generated, in whole or in part, using a voice recognition dictation system. KOLE FUCHS MD Nov 10, 2016 21:56
[2016-11-10] MEDS ORDERED: FENTANYL PF 100 MCG/2 ML VIAL. IV ONE ×2 (22:15→23:00)
[2016-11-10] MEDS ORDERED: IV NORMAL SALINE 1000ML BAG 1,000 ML IV SCH (22:15)
[2016-11-10] MEDS ORDERED: ONDANSETRON PF 4 MG/2 ML VIAL. IV ONE (22:15)
[2016-11-10 23:24] VITALS: BP 144/80
== END 2016-11-10 23:26 | disposition home or self-care (01) ==
LOC: ER 20:50
DX: R10.12 Left upper quadrant pain (principal); R10.13 Epigastric pain; K58.9 Irritable bowel syndrome, unspecified; F12.10 Cannabis abuse, uncomplicated; Z88.0 Allergy status to penicillin; Z88.1 Allergy status to other antibiotic agents; Z88.6 Allergy status to analgesic agent; Z88.8 Allergy status to other drugs, medicaments and biological substances; Z87.19 Personal history of other diseases of the digestive system
CPT/HCPCS: 96361; 96374; 96375; 99284; J2405; J3010; J7030

== ENCOUNTER 2016-11-27 14:30 | Inpatient (IN) | payer SELFPAY ==
[~2016-11-27] VITALS: Ht 177.8 cm; Wt 76.2 kg
[2016-11-27 15:46] LABS: BASO % 1 % (0-3); EOS % 0 % (0-3); HEMATOCRIT 43.2 % (39.0-53.0); HEMOGLOBIN 14.7 g/dL (13.0-17.5); LYMPH % 29 % (24-48); MEAN CORPUSCULAR HEMOGLOBIN 31 pg (25-35); MEAN CORPUSCULAR HGB CONC 34 g/dL (31-37); MEAN CORPUSCULAR VOLUME 92 fL (79-100); MONO % 8 % (0-9); NEUT % 63 % (31-73); PLATELET COUNT 233 x10^3/uL (140-400); RED CELL DISTRIBUTION WIDTH 12.9 % (11.5-14.5); WHITE BLOOD COUNT 6.8 x10^3/uL (4.0-11.0)
[2016-11-27] MEDS ORDERED: MORPHINE SULFATE 10 MG/ML VIAL. IV ONE (16:00)
[2016-11-27] MEDS ORDERED: ONDANSETRON PF 4 MG/2 ML VIAL. IV ONE (16:00)
[2016-11-27] MEDS ORDERED: IV NORMAL SALINE 1000ML BAG 1,000 ML IV SCH (16:00)
[2016-11-27 16:01] LABS: CALCIUM 9.9 mg/dL (8.5-10.1); GFR 87.2; POTASSIUM 3.7 mmol/L (3.5-5.1)
[2016-11-27 16:07] LABS: ALBUMIN 4.5 g/dL (3.4-5.0); TOTAL PROTEIN 8.8 g/dL (6.4-8.2)
--- NOTE | 2016-11-27 16:44 | PHYS DOC ---
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 Patient reports since last night he has been having "ripping, stabbing" epigastric pain that radiates to the left upper quadrant. No clear inciting or mitigating factors. Pain accompanied by nausea but no vomiting. He has taken ibuprofen and pamprin with insufficient relief. Patient reports symptoms similar to prior episodes of pancreatitis. 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 Of note, he does take Creon. Review of Systems Review of Systems Constitutional: Denies fever or chills Eyes: Denies change in visual acuity or eye pain HENT: Denies nasal congestion or sore throat Respiratory: Denies cough or shortness of breath Cardiovascular: Denies chest pain GI: Epigastric/LUQ abdominal pain, nausea. Denies vomiting, bloody stools or diarrhea : Denies dysuria or hematuria Musculoskeletal: Denies back pain or joint pain Integument: Denies rash or skin lesions Neurologic: Denies headache, focal weakness or sensory changes Current Medications Current Medications Current Medications Medications (Trade) Dose Ordered Sig/Kiya Start Time Stop Time Status Last Admin Dose Admin Morphine Sulfate 6 mg 1X ONCE 11/27/16 16:00 11/27/16 16:01 DC 11/27/16 15:51 6 MG Ondansetron HCl (Zofran) 4 mg 1X ONCE 11/27/16 16:00 11/27/16 16:01 DC 11/27/16 15:51 4 MG Sodium Chloride (Iv Sodium Chloride 0.9% 1000ml Bag) 1,000 ml @ 1,000 mls/hr Q1H 11/27/16 16:00 11/27/16 16:59 DC 11/27/16 15:52 1,000 MLS/HR Allergies Allergies Allergies Coded Allergies Type Severity Reaction Last Updated Verified Penicillins Allergy Intermediate Rash 07/05/16 Yes amoxicillin trihydrate Allergy Intermediate Rash 07/05/16 Yes potassium clavulanate Allergy Intermediate Rash 07/05/16 Yes tramadol Allergy Intermediate "MASSIVE H/A, HIVES, RASH,VOMITING 12/05/15 Yes acetaminophen Adverse Reaction Intermediate nausea 07/05/16 Yes Physical Exam Physical Exam Constitutional: Well developed, well nourished, no acute distress, non-toxic appearance HENT: Normocephalic, atraumatic, bilateral external ears normal Eyes: EOMI, conjunctiva normal, no discharge Neck: Normal range of motion, no stridor Cardiovascular: Tachycardic, regular rhythm, no murmur Lungs & Thorax: Bilateral breath sounds clear to auscultation Abdomen: Bowel sounds normal, soft, non-distended, epigastric TTP without rebound Skin: Warm, dry, no erythema, no rash Extremities: No obvious deformity, no edema Neurologic: Alert and oriented X 3, no gross deficits noted Current Patient Data Vital Signs Vital Signs Date Time Temp Pulse Resp B/P Pulse Ox O2 Delivery O2 Flow Rate FiO2 11/27/16 16:21 75 17 138/74 100 Room Air 11/27/16 14:56 98.2 98.2 Lab Values Laboratory Tests Test 11/27/16 15:10 White Blood Count 6.8x10^3/uL (4.0-11.0) Red Blood Count 4.70x10^6/uL (4.30-5.70) Hemoglobin 14.7g/dL (13.0-17.5) Hematocrit 43.2% (39.0-53.0) Mean Corpuscular Volume 92fL (79-100) Mean Corpuscular Hemoglobin 31pg (25-35) Mean Corpuscular Hemoglobin Concent 34g/dL (31-37) Red Cell Distribution Width 12.9% (11.5-14.5) Platelet Count 233x10^3/uL (140-400) Neutrophils (%) (Auto) 63% (31-73) Lymphocytes (%) (Auto) 29% (24-48) Monocytes (%) (Auto) 8% (0-9) Eosinophils (%) (Auto) 0% (0-3) Basophils (%) (Auto) 1% (0-3) Neutrophils # (Auto) 4.2x10^3uL (1.8-7.7) Lymphocytes # (Auto) 2.0x10^3/uL (1.0-4.8) Monocytes # (Auto) 0.5x10^3/uL (0.0-1.1) Eosinophils # (Auto) 0.0x10^3/uL (0.0-0.7) Basophils # (Auto) 0.0x10^3/uL (0.0-0.2) Sodium Level 142mmol/L (136-145) Potassium Level 3.7mmol/L (3.5-5.1) Chloride Level 104mmol/L (98-107) Carbon Dioxide Level 25mmol/L (21-32) Anion Gap 13 (6-14) Blood Urea Nitrogen 13mg/dL (8-26) Creatinine 1.0mg/dL (0.7-1.3) Estimated GFR (Cockcroft-Gault) 87.2 BUN/Creatinine Ratio 13 (6-20) Glucose Level 91mg/dL (70-99) Calcium Level 9.9mg/dL (8.5-10.1) Total Bilirubin 1.0mg/dL (0.2-1.0) Aspartate Amino Transferase (AST) 40U/L (15-37) H Alanine Aminotransferase (ALT) 80U/L (16-63) H Alkaline Phosphatase 72U/L (46-116) Total Protein 8.8g/dL (6.4-8.2) H Albumin 4.5g/dL (3.4-5.0) Albumin/Globulin Ratio 1.0 (1.0-1.7) Lipase 254U/L (73-393) Laboratory Tests 11/27/16 15:10 Laboratory Tests 11/27/16 15:10 Radiology/Procedures Radiology/Procedures [] Course & Med Decision Making Course & Med Decision Making Pertinent Labs and Imaging studies reviewed. (See chart for details) Patient is 31-year-old male who presents with abdominal pain. Suspect pancreatitis. Will check labs to evaluate. IV fluid bolus, pain medication, nausea medication ordered for relief of symptoms. Labs unremarkable. Lipase within normal limits, however given chronic pancreatitis this does not rule out acute exacerbation. Discussed results with patient, who continues to have significant pain. Discussed with Dr. Sheehan, will admit under his care for further evaluation and treatment. Dragon Disclaimer Dragon Disclaimer This electronic medical record was generated, in whole or in part, using a voice recognition dictation system. Departure Departure Impression: Primary Impression: Acute on chronic pancreatitis Disposition: ADMITTED INPATIENT Admitting Physician: Preethi Sheehan Condition: STABLE Referrals: MARKUS HINES MD (PCP) JAIR MALIK MD Nov 27, 2016 16:44
[2016-11-27] MEDS ORDERED: ONDANSETRON PF 4 MG/2 ML VIAL. IV PRN (16:45)
[2016-11-27] MEDS ORDERED: MORPHINE SULFATE 4 MG/ML DISP.SYRIN. IV PRN (16:45)
[2016-11-27] MEDS ORDERED: POLYETHYLENE GLYCOL 3350 17 GM PACKET. PO PRN (17:00)
[2016-11-27] MEDS ORDERED: ONDANSETRON ODT 4 MG TAB.RAPDIS. PO PRN (17:00)
[2016-11-27] MEDS ORDERED: NICOTINE POLACRILEX 2MG GUM PACKAGE of 12. BC PRN (17:00)
[2016-11-27] MEDS ORDERED: MORPHINE SULFATE 4 MG/ML DISP.SYRIN. IV ONE (17:00)
--- NOTE | 2016-11-27 17:00 | PDOC1 ---
History and Physical Date of Admission Date of Admission DATE: 11/27/16 TIME: 16:56 Identification/Chief Complaint Chief Complaint abd pain Source Source: Chart review, Patient History of Present Illness History of Present Illness Acute worsening abd pain over 4 days. Chronic pain from pancreatits, he lost his meds. Is under contract now for pain meds with a new provider, was unable to have meds refilled due to contract. He has really suffered for 4 days , but I encouraged him that he did survive with no pain meds and his pancreatitis may be improving Past Medical History Cardiovascular: No pertinent hx Pulmonary: No pertinent hx GI: Other (pancreatitis) Rheumatologic: Other Family History Family History: No Significant Social History Smoke: 1 pack per day ALCOHOL: none Drugs: None, Other Current Problem List Problem List Problems Medical Problems: (1) Acute on chronic pancreatitis Status: Acute Problems: Current Medications Current Medications Current Medications Sodium Chloride (Iv Sodium Chloride 0.9% 1000ml Bag) 1,000 ml @ 1,000 mls/hr Q1H IV Last administered on 11/27/16 15:52; Start 11/27/16 at 16:00; Stop at 16:59 Ondansetron HCl (Zofran) 4 mg 1X ONCE IV Last administered on 11/27/16 15:51; Start 11/27/16 at 16:00; Stop 11/27/16 at 16:01; Status DC Morphine Sulfate 6 mg 1X ONCE IV Last administered on 11/27/16 15:51; Start at 16:00; Stop 11/27/16 at 16:01; Status DC Morphine Sulfate 4 mg 1X ONCE IV ; Start 11/27/16 at 17:00; Stop 11/27/16 at 17: 01 Ondansetron HCl (Zofran) 4 mg PRN Q8HRS PRN IV NAUSEA/VOMITING; Start 11/27/16 at 16:45; Stop 11/28/16 at 16:44 Morphine Sulfate 4 mg 4 mg PRN Q2HR PRN IV PAIN; Start 11/27/16 at 16:45; Stop 11/28/16 at 16:44 Sodium Chloride (Iv Sodium Chloride 0.9% 1000ml Bag) 1,000 ml @ 150 mls/hr Q6H40M IV ; Start 11/27/16 at 18:00; Stop 11/28/16 at 17:59 Active Scripts Active [place] 5-325 Tablet (Acetaminophen/Hydrocodone Bitart) 1 Each Tablet 1-2 Tab PO Q4-6HRS PRN Bentyl (Dicyclomine Hcl) 10 Mg Capsule 20 Mg PO QID Dicyclomine Hcl 20 Mg Tablet 1 Tab PO QID Dicyclomine Hcl 20 Mg Tablet 1 Tab PO QID Zofran Odt (Ondansetron) 4 Mg Tab.rapdis 1 Tab SL Q8HRS PRN Allergies Allergies: Coded Allergies: Penicillins (Verified Allergy, Intermediate, Rash, 07/05/16) amoxicillin trihydrate (Verified Allergy, Intermediate, Rash, 07/05/16) potassium clavulanate (Verified Allergy, Intermediate, Rash, 07/05/16) tramadol (Verified Allergy, Intermediate, "MASSIVE H/A, HIVES, RASH, VOMITING, 12/05/15) acetaminophen (Verified Adverse Reaction, Intermediate, nausea, 07/05/16) ROS General: YES: Chills, Fatigue, Malaise PSYCHOLOGICAL ROS: No: Anxiety, Behavioral Disorder, Concentration difficultie , Decreased libido, Depression, Disorientation, Hallucinations, Hostility, Irritablity, Memory difficulties, Mood Swings, Obsessive thoughts, Other, Physical abuse, Sexual abuse, Sleep disturbances, Suicidal ideation Eyes: No Blurry vision, No Decreased vision, No Double vision, No Dry eyes, No Excessive tearing, No Eye Pain, No Itchy Eyes, No Loss of vision, No Other, No Photophobia, No Scotomata, No Uses contacts, No Uses glasses HEENT: No: Epistaxis, Heacaches, Hearing change, Nasal congestion, Nasal discharge, Oral lesions, Other, Sinus pain, Sneezing, Snoring, Sore Throat, Tinnitus, Vertigo, Visual Changes, Vocal changes Respiratory: YES: SOB with excertion, No: Cough, Hemoptysis, Orthopnea, Other, Pleuritic Pain, Shortness of breath , Sputum Changes, Stridor, Tachypnea, Wheezing Cardiovascular: No Chest Pain, No Edema, No Lt Headedness, No Orthopnea, No Other, No Palpitations, No Paroxysmal Noc. Dyspnea Gastrointestinal: Yes Abdominal Pain, Yes Nausea Genitourinary: No , No , No , No , No , No , No , No Discharge, No Dysuria, No Flank Pain, No Frequency, No Hematuria, No Incontinence, No Other, No Pain, No Retention, No Urgency Skin: Yes Dry Skin Physical Exam General: Alert, Oriented X3, Cooperative, mild distress HEENT: Atraumatic, EOMI, Mucous membr. moist/pink Lungs: Clear to auscultation, Normal air movement Heart: no murmurs Abdomen: Normal bowel sounds, Soft Extremities: No clubbing, No edema, Normal pulses Skin: No rashes Neuro: Normal speech, Sensation intact, Cranial nerves 3-12 NL Psych/Mental Status: Mood NL Vitals Vitals Vital Signs Date Time Temp Pulse Resp B/P Pulse Ox O2 Delivery O2 Flow Rate FiO2 11/27/16 16:21 75 17 138/74 100 Room Air 11/27/16 14:56 98.2 98.2 Labs Labs Laboratory Tests Test 11/27/16 15:10 White Blood Count 6.8x10^3/uL (4.0-11.0) Red Blood Count 4.70x10^6/uL (4.30-5.70) Hemoglobin 14.7g/dL (13.0-17.5) Hematocrit 43.2% (39.0-53.0) Mean Corpuscular Volume 92fL (79-100) Mean Corpuscular Hemoglobin 31pg (25-35) Mean Corpuscular Hemoglobin Concent 34g/dL (31-37) Red Cell Distribution Width 12.9% (11.5-14.5) Platelet Count 233x10^3/uL (140-400) Neutrophils (%) (Auto) 63% (31-73) Lymphocytes (%) (Auto) 29% (24-48) Monocytes (%) (Auto) 8% (0-9) Eosinophils (%) (Auto) 0% (0-3) Basophils (%) (Auto) 1% (0-3) Neutrophils # (Auto) 4.2x10^3uL (1.8-7.7) Lymphocytes # (Auto) 2.0x10^3/uL (1.0-4.8) Monocytes # (Auto) 0.5x10^3/uL (0.0-1.1) Eosinophils # (Auto) 0.0x10^3/uL (0.0-0.7) Basophils # (Auto) 0.0x10^3/uL (0.0-0.2) Sodium Level 142mmol/L (136-145) Potassium Level 3.7mmol/L (3.5-5.1) Chloride Level 104mmol/L (98-107) Carbon Dioxide Level 25mmol/L (21-32) Anion Gap 13 (6-14) Blood Urea Nitrogen 13mg/dL (8-26) Creatinine 1.0mg/dL (0.7-1.3) Estimated GFR (Cockcroft-Gault) 87.2 BUN/Creatinine Ratio 13 (6-20) Glucose Level 91mg/dL (70-99) Calcium Level 9.9mg/dL (8.5-10.1) Total Bilirubin 1.0mg/dL (0.2-1.0) Aspartate Amino Transf (AST/SGOT) 40U/L (15-37) Alanine Aminotransferase (ALT/SGPT) 80U/L (16-63) Alkaline Phosphatase 72U/L (46-116) Total Protein 8.8g/dL (6.4-8.2) Albumin 4.5g/dL (3.4-5.0) Albumin/Globulin Ratio 1.0 (1.0-1.7) Lipase 254U/L (73-393) Laboratory Tests Test 11/27/16 15:10 White Blood Count 6.8x10^3/uL (4.0-11.0) Red Blood Count 4.70x10^6/uL (4.30-5.70) Hemoglobin 14.7g/dL (13.0-17.5) Hematocrit 43.2% (39.0-53.0) Mean Corpuscular Volume 92fL (79-100) Mean Corpuscular Hemoglobin 31pg (25-35) Mean Corpuscular Hemoglobin Concent 34g/dL (31-37) Red Cell Distribution Width 12.9% (11.5-14.5) Platelet Count 233x10^3/uL (140-400) Neutrophils (%) (Auto) 63% (31-73) Lymphocytes (%) (Auto) 29% (24-48) Monocytes (%) (Auto) 8% (0-9) Eosinophils (%) (Auto) 0% (0-3) Basophils (%) (Auto) 1% (0-3) Neutrophils # (Auto) 4.2x10^3uL (1.8-7.7) Lymphocytes # (Auto) 2.0x10^3/uL (1.0-4.8) Monocytes # (Auto) 0.5x10^3/uL (0.0-1.1) Eosinophils # (Auto) 0.0x10^3/uL (0.0-0.7) Basophils # (Auto) 0.0x10^3/uL (0.0-0.2) Sodium Level 142mmol/L (136-145) Potassium Level 3.7mmol/L (3.5-5.1) Chloride Level 104mmol/L (98-107) Carbon Dioxide Level 25mmol/L (21-32) Anion Gap 13 (6-14) Blood Urea Nitrogen 13mg/dL (8-26) Creatinine 1.0mg/dL (0.7-1.3) Estimated GFR (Cockcroft-Gault) 87.2 BUN/Creatinine Ratio 13 (6-20) Glucose Level 91mg/dL (70-99) Calcium Level 9.9mg/dL (8.5-10.1) Total Bilirubin 1.0mg/dL (0.2-1.0) Aspartate Amino Transf (AST/SGOT) 40U/L (15-37) Alanine Aminotransferase (ALT/SGPT) 80U/L (16-63) Alkaline Phosphatase 72U/L (46-116) Total Protein 8.8g/dL (6.4-8.2) Albumin 4.5g/dL (3.4-5.0) Albumin/Globulin Ratio 1.0 (1.0-1.7) Lipase 254U/L (73-393) VTE Prophylaxis Ordered VTE Prophylaxis Devices: No VTE Pharmacological Prophylaxi: No Assessment/Plan Assessment/Plan Acute on chronic pancreatitis acute abd pain tobaccoism narcotic dependence and now withdrawl, 4 days restart to home RIO Angulo MD Nov 27, 2016 17:00
[2016-11-27] MEDS: DICYCLOMINE HCL 10 MG CAPSULE PO SCH ×2 (17:04→23:09)
[2016-11-27] MEDS: FENTANYL PF 100 MCG/2 ML VIAL. IV PRN ×3 (18:47→23:15)
[2016-11-27 19:00] VITALS: BP 136/85
[2016-11-27] MEDS: IV NORMAL SALINE 1000ML BAG 1,000 ML IV SCH (19:21)
[2016-11-27] MEDS: HYDROCODONE/APAP 7.5/325MG TABLET. PO PRN (19:22)
[2016-11-27] MEDS: NICOTINE 14MG PATCH. TD PRN (20:07)
[2016-11-27 23:00] VITALS: BP 144/84
[2016-11-28] MEDS: HYDROCODONE/APAP 7.5/325MG TABLET. PO PRN ×5 (00:18→21:00)
[2016-11-28] MEDS: IV NORMAL SALINE 1000ML BAG 1,000 ML IV SCH ×3 (02:00→15:27)
[2016-11-28] MEDS: FENTANYL PF 100 MCG/2 ML VIAL. IV PRN ×9 (02:57→22:25)
[2016-11-28 03:00] VITALS: BP 113/65
[2016-11-28 06:53] LABS: CALCIUM 8.3 mg/dL (8.5-10.1); GFR 87.2
[2016-11-28 06:56] LABS: BASO % 0 % (0-3); EOS % 2 % (0-3); HEMOGLOBIN 12.3 g/dL (13.0-17.5); LYMPH # 2.5 x10^3/uL (1.0-4.8); LYMPH % 44 % (24-48); MEAN CORPUSCULAR HEMOGLOBIN 32 pg (25-35); MEAN CORPUSCULAR HGB CONC 34 g/dL (31-37); MEAN CORPUSCULAR VOLUME 94 fL (79-100); MONO % 8 % (0-9); NEUT % 46 % (31-73); PLATELET COUNT 179 x10^3/uL (140-400); RED BLOOD COUNT 3.85 x10^6/uL (4.30-5.70); RED CELL DISTRIBUTION WIDTH 13.1 % (11.5-14.5); WHITE BLOOD COUNT 5.8 x10^3/uL (4.0-11.0)
[2016-11-28 07:25] VITALS: BP 119/71
[2016-11-28] MEDS: DOCUSATE SODIUM 100 MG CAPSULE. PO SCH (08:26)
[2016-11-28] MEDS: DICYCLOMINE HCL 10 MG CAPSULE PO SCH ×4 (08:26→20:59)
--- NOTE | 2016-11-28 10:08 | ACF ---
Admission Forms Criteria ABDOMINAL PAIN Clinical Indications for Admission to Inpatient Care (Place 'X' for any and all applicable criteria): Admission is indicated for ANY ONE of the following(1)(2)(3)(4)(5): [X]I. Inpatient admission required rather than observation care (Also use Abdominal Pain: Observation Care, as appropriate) because of ANY ONE of the following: [ ]a) Severe pain requiring acute inpatient management [X]b) Identification of etiology/finding that requires inpatient care (eg, aortic dissection, free air) [ ]c) Absent bowel sounds with complete ileus(6) [ ]d) Suspected toxic megacolon [ ]e) Severe electrolyte abnormalities requiring inpatient care [ ]f) High fever or infection requiring inpatient admission as indicated by ANY ONE of following(7)(8): [ ] i) Appropriate outpatient or observational care antimicrobial treatment unavailable, not effective, or not feasible [ ] ii) Documented bacteremia [ ] iii) Temperature > 104.9 degrees F (oral) [ ] iv) T >103.1 F (oral) or < 96.8 F(rectal) that does not respond to all emergency treatment measures [ ]g) Signs of intestinal obstruction [B] [ ]h) Hemodynamic instability [ ]i) IV fluid to replace significant ongoing losses (greater than 3 L/m2 per day) (12)(13) [ ]j) Percutaneous or open drainage (eg, abscess, biliary tract ) procedures [ ]k) Parenteral nutrition regimen that must be implemented on inpatient basis [ ]l) Other condition,treatment or monitoring requiring inpatient admission. [ ]II. Peritoneal signs present [ ]III. Surgery needed that cannot be performed on an ambulatory basis. [ ]IV. Evaluation requires patient to not eat or drink for extended period ( eg, more than 24 hours). [ ]V. Contraindications and/or Inappropriate clinical situations for Observational Care in patients with abdominal pain, when ANY ONE of the following is required: [ ]a) Thorough evaluation is required to prevent catastrophic events due to delays in diagnosing (e.g.Mesenteric ischemia) 1,3 [ ]b) Patient with severe pathology or with chronic symptoms unlikely to improve in the ED stay (3) [ ]. General contraindications and/or Inappropriate clinical situations for Observational Care in patients with abdominal pain, when ANY ONE of the following is required: [ ]a) Prediction of prolongation of LOS based on ANY ONE of the following may be considered as a contraindication for observational care 2, 3, 4, 5, 6, 7, 8, 9, 10, 11 [ ]i) Age > 65 yrs. [ ]ii) Patient arriving by ambulance [ ]iii) Patient with high acuity [ ]iv) Patient requiring vital sign monitoring [ ]v) Patient on IV medication [ ]b) Systolic blood pressures 180mmHg 3,12 [ ]c) Patient with altered mental status including delirium and other alteration of consciousness, (3) [ ]d) Patient whose discharge disposition will be to a [facility] home or rehabilitation home should not be managed in Emergency Department Observation Unit. CMS rule requires 3 days hospital stay before such placement.3,13 [ ]e) Patient with failure to thrive due to broad array of etiologies 3,16,17 [ ]f) Inability to ambulate 3,14 Extended stay beyond goal length of stay may be needed for(2)(3): [ ]a) Persistent abdominal pain with suspected intra-abdominal process [ ]b) Diagnosed condition requiring continued stay (e.g., pancreatitis, complicated diverticulitis) [ ]c) Surgery (e.g., colectomy) The original [facility] content created by [employer] has been revised. The portions of the content which have been revised are identified through the use of italic text or in bold, and [facility] has neither reviewed nor approved the modified material.All other unmodified content is copyright [facility]. Please see references footnoted in the original [facility] edition 2016 Admission Criteria Met?: Yes EMPERATRIZ JONES Nov 28, 2016 10:08
[2016-11-28 10:33] VITALS: BP 136/74
--- NOTE | 2016-11-28 13:46 | PDOC ---
PROGRESS NOTES Chief Complaint Chief Complaint Acute on chronic pancreatitis acute abd pain tobaccoism prior substance abuse History of Present Illness History of Present Illness still ongoing pain, 04/04, on clear liquid diet, not much improved Vitals Vitals Vital Signs Date Time Temp Pulse Resp B/P Pulse Ox O2 Delivery O2 Flow Rate FiO2 11/28/16 13:00 20 97 Room Air 11/28/16 10:33 97.9 75 136/74 97.9 Physical Exam General: Alert, Oriented X3, Cooperative, mild distress Heart: Regular rate, No murmurs Lungs: Clear, Wheezing Abdomen: Normal bowel sounds, Soft Extremities: No clubbing, No edema, Normal pulses Skin: No rashes Labs LABS Laboratory Tests Test 11/27/16 15:10 11/28/16 06:05 White Blood Count 6.8x10^3/uL (4.0-11.0) 5.8x10^3/uL (4.0-11.0) Red Blood Count 4.70x10^6/uL (4.30-5.70) 3.85x10^6/uL (4.30-5.70) Hemoglobin 14.7g/dL (13.0-17.5) 12.3g/dL (13.0-17.5) Hematocrit 43.2% (39.0-53.0) 36.0% (39.0-53.0) Mean Corpuscular Volume 92fL (79-100) 94fL (79-100) Mean Corpuscular Hemoglobin 31pg (25-35) 32pg (25-35) Mean Corpuscular Hemoglobin Concent 34g/dL (31-37) 34g/dL (31-37) Red Cell Distribution Width 12.9% (11.5-14.5) 13.1% (11.5-14.5) Platelet Count 233x10^3/uL (140-400) 179x10^3/uL (140-400) Neutrophils (%) (Auto) 63% (31-73) 46% (31-73) Lymphocytes (%) (Auto) 29% (24-48) 44% (24-48) Monocytes (%) (Auto) 8% (0-9) 8% (0-9) Eosinophils (%) (Auto) 0% (0-3) 2% (0-3) Basophils (%) (Auto) 1% (0-3) 0% (0-3) Neutrophils # (Auto) 4.2x10^3uL (1.8-7.7) 2.7x10^3uL (1.8-7.7) Lymphocytes # (Auto) 2.0x10^3/uL (1.0-4.8) 2.5x10^3/uL (1.0-4.8) Monocytes # (Auto) 0.5x10^3/uL (0.0-1.1) 0.5x10^3/uL (0.0-1.1) Eosinophils # (Auto) 0.0x10^3/uL (0.0-0.7) 0.1x10^3/uL (0.0-0.7) Basophils # (Auto) 0.0x10^3/uL (0.0-0.2) 0.0x10^3/uL (0.0-0.2) Sodium Level 142mmol/L (136-145) 141mmol/L (136-145) Potassium Level 3.7mmol/L (3.5-5.1) 4.0mmol/L (3.5-5.1) Chloride Level 104mmol/L (98-107) 106mmol/L (98-107) Carbon Dioxide Level 25mmol/L (21-32) 27mmol/L (21-32) Anion Gap 13 (6-14) 8 (6-14) Blood Urea Nitrogen 13mg/dL (8-26) 10mg/dL (8-26) Creatinine 1.0mg/dL (0.7-1.3) 1.0mg/dL (0.7-1.3) Estimated GFR (Cockcroft-Gault) 87.2 87.2 BUN/Creatinine Ratio 13 (6-20) Glucose Level 91mg/dL (70-99) 92mg/dL (70-99) Calcium Level 9.9mg/dL (8.5-10.1) 8.3mg/dL (8.5-10.1) Total Bilirubin 1.0mg/dL (0.2-1.0) Aspartate Amino Transf (AST/SGOT) 40U/L (15-37) Alanine Aminotransferase (ALT/SGPT) 80U/L (16-63) Alkaline Phosphatase 72U/L (46-116) Total Protein 8.8g/dL (6.4-8.2) Albumin 4.5g/dL (3.4-5.0) Albumin/Globulin Ratio 1.0 (1.0-1.7) Lipase 254U/L (73-393) Review of Systems Review of Systems abd pain, nausea Assessment and Plan Assessmemt and Plan Problems Medical Problems: (1) Acute on chronic pancreatitis Status: Acute Problems: Comment Review of Relevant I have reviewed the following items evita (where applicable) has been applied. Labs Laboratory Tests Test 11/27/16 15:10 11/28/16 06:05 White Blood Count 6.8x10^3/uL (4.0-11.0) 5.8x10^3/uL (4.0-11.0) Red Blood Count 4.70x10^6/uL (4.30-5.70) 3.85x10^6/uL (4.30-5.70) Hemoglobin 14.7g/dL (13.0-17.5) 12.3g/dL (13.0-17.5) Hematocrit 43.2% (39.0-53.0) 36.0% (39.0-53.0) Mean Corpuscular Volume 92fL (79-100) 94fL (79-100) Mean Corpuscular Hemoglobin 31pg (25-35) 32pg (25-35) Mean Corpuscular Hemoglobin Concent 34g/dL (31-37) 34g/dL (31-37) Red Cell Distribution Width 12.9% (11.5-14.5) 13.1% (11.5-14.5) Platelet Count 233x10^3/uL (140-400) 179x10^3/uL (140-400) Neutrophils (%) (Auto) 63% (31-73) 46% (31-73) Lymphocytes (%) (Auto) 29% (24-48) 44% (24-48) Monocytes (%) (Auto) 8% (0-9) 8% (0-9) Eosinophils (%) (Auto) 0% (0-3) 2% (0-3) Basophils (%) (Auto) 1% (0-3) 0% (0-3) Neutrophils # (Auto) 4.2x10^3uL (1.8-7.7) 2.7x10^3uL (1.8-7.7) Lymphocytes # (Auto) 2.0x10^3/uL (1.0-4.8) 2.5x10^3/uL (1.0-4.8) Monocytes # (Auto) 0.5x10^3/uL (0.0-1.1) 0.5x10^3/uL (0.0-1.1) Eosinophils # (Auto) 0.0x10^3/uL (0.0-0.7) 0.1x10^3/uL (0.0-0.7) Basophils # (Auto) 0.0x10^3/uL (0.0-0.2) 0.0x10^3/uL (0.0-0.2) Sodium Level 142mmol/L (136-145) 141mmol/L (136-145) Potassium Level 3.7mmol/L (3.5-5.1) 4.0mmol/L (3.5-5.1) Chloride Level 104mmol/L (98-107) 106mmol/L (98-107) Carbon Dioxide Level 25mmol/L (21-32) 27mmol/L (21-32) Anion Gap 13 (6-14) 8 (6-14) Blood Urea Nitrogen 13mg/dL (8-26) 10mg/dL (8-26) Creatinine 1.0mg/dL (0.7-1.3) 1.0mg/dL (0.7-1.3) Estimated GFR (Cockcroft-Gault) 87.2 87.2 BUN/Creatinine Ratio 13 (6-20) Glucose Level 91mg/dL (70-99) 92mg/dL (70-99) Calcium Level 9.9mg/dL (8.5-10.1) 8.3mg/dL (8.5-10.1) Total Bilirubin 1.0mg/dL (0.2-1.0) Aspartate Amino Transf (AST/SGOT) 40U/L (15-37) Alanine Aminotransferase (ALT/SGPT) 80U/L (16-63) Alkaline Phosphatase 72U/L (46-116) Total Protein 8.8g/dL (6.4-8.2) Albumin 4.5g/dL (3.4-5.0) Albumin/Globulin Ratio 1.0 (1.0-1.7) Lipase 254U/L (73-393) Laboratory Tests Test 11/27/16 15:10 11/28/16 06:05 White Blood Count 6.8x10^3/uL (4.0-11.0) 5.8x10^3/uL (4.0-11.0) Red Blood Count 4.70x10^6/uL (4.30-5.70) 3.85x10^6/uL (4.30-5.70) Hemoglobin 14.7g/dL (13.0-17.5) 12.3g/dL (13.0-17.5) Hematocrit 43.2% (39.0-53.0) 36.0% (39.0-53.0) Mean Corpuscular Volume 92fL (79-100) 94fL (79-100) Mean Corpuscular Hemoglobin 31pg (25-35) 32pg (25-35) Mean Corpuscular Hemoglobin Concent 34g/dL (31-37) 34g/dL (31-37) Red Cell Distribution Width 12.9% (11.5-14.5) 13.1% (11.5-14.5) Platelet Count 233x10^3/uL (140-400) 179x10^3/uL (140-400) Neutrophils (%) (Auto) 63% (31-73) 46% (31-73) Lymphocytes (%) (Auto) 29% (24-48) 44% (24-48) Monocytes (%) (Auto) 8% (0-9) 8% (0-9) Eosinophils (%) (Auto) 0% (0-3) 2% (0-3) Basophils (%) (Auto) 1% (0-3) 0% (0-3) Neutrophils # (Auto) 4.2x10^3uL (1.8-7.7) 2.7x10^3uL (1.8-7.7) Lymphocytes # (Auto) 2.0x10^3/uL (1.0-4.8) 2.5x10^3/uL (1.0-4.8) Monocytes # (Auto) 0.5x10^3/uL (0.0-1.1) 0.5x10^3/uL (0.0-1.1) Eosinophils # (Auto) 0.0x10^3/uL (0.0-0.7) 0.1x10^3/uL (0.0-0.7) Basophils # (Auto) 0.0x10^3/uL (0.0-0.2) 0.0x10^3/uL (0.0-0.2) Sodium Level 142mmol/L (136-145) 141mmol/L (136-145) Potassium Level 3.7mmol/L (3.5-5.1) 4.0mmol/L (3.5-5.1) Chloride Level 104mmol/L (98-107) 106mmol/L (98-107) Carbon Dioxide Level 25mmol/L (21-32) 27mmol/L (21-32) Anion Gap 13 (6-14) 8 (6-14) Blood Urea Nitrogen 13mg/dL (8-26) 10mg/dL (8-26) Creatinine 1.0mg/dL (0.7-1.3) 1.0mg/dL (0.7-1.3) Estimated GFR (Cockcroft-Gault) 87.2 87.2 BUN/Creatinine Ratio 13 (6-20) Glucose Level 91mg/dL (70-99) 92mg/dL (70-99) Calcium Level 9.9mg/dL (8.5-10.1) 8.3mg/dL (8.5-10.1) Total Bilirubin 1.0mg/dL (0.2-1.0) Aspartate Amino Transf (AST/SGOT) 40U/L (15-37) Alanine Aminotransferase (ALT/SGPT) 80U/L (16-63) Alkaline Phosphatase 72U/L (46-116) Total Protein 8.8g/dL (6.4-8.2) Albumin 4.5g/dL (3.4-5.0) Albumin/Globulin Ratio 1.0 (1.0-1.7) Lipase 254U/L (73-393) Medications Current Medications Sodium Chloride (Iv Sodium Chloride 0.9% 1000ml Bag) 1,000 ml @ 1,000 mls/hr Q1H IV Last administered on 11/27/16 15:52; Start 11/27/16 at 16:00; Stop at 16:59; Status DC Ondansetron HCl (Zofran) 4 mg 1X ONCE IV Last administered on 11/27/16 15:51; Start 11/27/16 at 16:00; Stop 11/27/16 at 16:01; Status DC Morphine Sulfate 6 mg 1X ONCE IV Last administered on 11/27/16 15:51; Start at 16:00; Stop 11/27/16 at 16:01; Status DC Morphine Sulfate 4 mg 1X ONCE IV Last administered on 11/27/16 16:58; Start at 17:00; Stop 11/27/16 at 17:01; Status DC Ondansetron HCl (Zofran) 4 mg PRN Q8HRS PRN IV NAUSEA/VOMITING; Start 11/27/16 at 16:45; Stop 11/28/16 at 16:44 Morphine Sulfate 4 mg 4 mg PRN Q2HR PRN IV PAIN; Start 11/27/16 at 16:45; Stop 11/28/16 at 16:44 Sodium Chloride (Iv Sodium Chloride 0.9% 1000ml Bag) 1,000 ml @ 150 mls/hr Q6H40M IV Last administered on 11/28/16 08:32; Start 11/27/16 at 18:00; Stop 11/28/16 at 17:59 Fentanyl Citrate (Fentanyl 2ml Vial) 100 mcg PRN Q2HR PRN IV pain Last administered on 11/28/16 12:30; Start 11/27/16 at 17:00 Acetaminophen/ Hydrocodone Bitart (Lortab 7.5/325) 1 tab PRN Q4HRS PRN PO pain Last administered on 11/28/16 10:35; Start 11/27/16 at 17:00 Polyethylene Glycol (miraLAX PACKET) 17 gm PRN DAILY PRN PO CONSTIPATION; Start 11/27/16 at 17:00 Docusate Sodium (Colace) 100 mg DAILY PO Last administered on 11/28/16 08:26; Start 11/28/16 at 09:00 Dicyclomine HCl (Bentyl) 20 mg QID PO Last administered on 11/28/16 13:42; Start 11/27/16 at 17:00 Ondansetron HCl (Zofran Odt) 4 mg PRN Q8HRS PRN PO NAUSEA Last administered on 11/27/16 21:35; Start 11/27/16 at 17:00 Nicotine Polacrilex (Nicorette Gum) 1 each PRN Q1HR PRN BC SMOKING CESSATION; Start 11/27/16 at 17:00 Nicotine (Nicoderm Cq 14mg) 1 patch PRN DAILY PRN TD SMOKING CESSATION Last administered on 11/27/16 20:07; Start 11/27/16 at 17:00 Active Scripts Active [place] 5-325 Tablet (Acetaminophen/Hydrocodone Bitart) 1 Each Tablet 1-2 Tab PO Q4-6HRS PRN Bentyl (Dicyclomine Hcl) 10 Mg Capsule 20 Mg PO QID Dicyclomine Hcl 20 Mg Tablet 1 Tab PO QID Dicyclomine Hcl 20 Mg Tablet 1 Tab PO QID Zofran Odt (Ondansetron) 4 Mg Tab.rapdis 1 Tab SL Q8HRS PRN Vitals/I & O Vital Sign - Last 24 Hours 11/27/16 11/27/16 11/27/16 11/27/16 14:56 15:29 15:51 16:21 Temp 98.2 98.2 Pulse 110 99 75 Resp 18 B/P 153/89 139/74 138/74 Pulse Ox 100 100 100 100 O2 Delivery Room Air Room Air Room Air Room Air 11/27/16 11/27/16 11/27/16 11/27/16 16:58 17:00 18:47 19:00 Temp 97.9 97.9 Pulse 80 71 Resp 18 48 18 18 B/P 134/83 136/85 Pulse Ox 100 100 93 O2 Delivery Room Air Room Air Room Air Room Air 11/27/16 11/27/16 11/27/16 11/27/16 19:22 21:31 23:00 23:15 Temp 96.7 96.7 Pulse 80 Resp 18 18 18 B/P 144/84 Pulse Ox 100 O2 Delivery Room Air Room Air Room Air Room Air 11/28/16 11/28/16 11/28/16 11/28/16 00:18 02:57 03:00 05:59 Temp 98.1 98.1 Pulse 83 Resp 18 18 18 18 B/P 113/65 Pulse Ox 99 O2 Delivery Room Air Room Air Room Air Room Air 11/28/16 11/28/16 11/28/16 11/28/16 06:35 07:25 07:35 08:27 Temp 97.5 97.5 Pulse 78 Resp 18 18 20 B/P 119/71 Pulse Ox 97 97 O2 Delivery Room Air Room Air Room Air Room Air 11/28/16 11/28/16 11/28/16 11/28/16 10:30 10:33 10:35 11:35 Temp 97.9 97.9 Pulse 75 Resp 20 18 20 20 B/P 136/74 Pulse Ox 97 99 97 97 O2 Delivery Room Air Room Air Room Air 11/28/16 11/28/16 12:30 13:00 Resp 20 20 Pulse Ox 97 97 O2 Delivery Room Air Room Air Intake and Output 11/27/16 11/27/16 11/28/16 15:00 23:00 07:00 Intake Total 1000 ml 650 ml Balance 1000 ml 650 ml RIO PRO MD Nov 28, 2016 13:46
[2016-11-28 14:30] VITALS: BP 127/88
[2016-11-28] MEDS: NICOTINE 14MG PATCH. TD PRN (18:19)
[2016-11-28 19:00] VITALS: BP 144/83
[2016-11-28 23:00] VITALS: BP 152/89
[2016-11-29] MEDS: FENTANYL PF 100 MCG/2 ML VIAL. IV PRN ×7 (00:34→14:13)
[2016-11-29] MEDS: HYDROCODONE/APAP 7.5/325MG TABLET. PO PRN ×4 (01:01→15:03)
[2016-11-29 03:00] VITALS: BP 133/87
[2016-11-29 07:30] VITALS: BP 152/93
[2016-11-29] MEDS: DICYCLOMINE HCL 10 MG CAPSULE PO SCH ×3 (08:53→16:49)
[2016-11-29] MEDS: DOCUSATE SODIUM 100 MG CAPSULE. PO SCH (08:53)
[2016-11-29] MEDS ORDERED: HYDR-971 PO (10:12)
[2016-11-29 10:35] VITALS: BP 140/85
--- NOTE | 2016-11-29 13:46 | PDOC3 ---
Discharge Summary Visit Information Date of Admission: Nov 27, 2016 Date of Discharge: Nov 29, 2016 Admitting Diagnosis: abd pain Final Diagnosis Acute on chronic pancreatitis acute abd pain tobaccoism prior history of substance abuse, EtOHism narcotic contract with Dr. Cohen Problems Medical Problems: (1) Acute on chronic pancreatitis Status: Acute Brief Hospital Course Allergies Allergies Coded Allergies Type Severity Reaction Last Updated Verified Penicillins Allergy Intermediate Rash 07/05/16 Yes amoxicillin trihydrate Allergy Intermediate Rash 07/05/16 Yes potassium clavulanate Allergy Intermediate Rash 07/05/16 Yes tramadol Allergy Intermediate "MASSIVE H/A, HIVES, RASH,VOMITING 12/05/15 Yes acetaminophen Adverse Reaction Intermediate nausea 07/05/16 Yes Vital Signs Vital Signs Date Time Temp Pulse Resp B/P Pulse Ox O2 Delivery O2 Flow Rate FiO2 11/29/16 12:34 18 Room Air 11/29/16 10:35 97.3 76 140/85 99 97.3 Lab Results Laboratory Tests Test 11/27/16 15:10 11/28/16 06:05 White Blood Count 6.8x10^3/uL (4.0-11.0) 5.8x10^3/uL (4.0-11.0) Red Blood Count 4.70x10^6/uL (4.30-5.70) 3.85x10^6/uL (4.30-5.70) Hemoglobin 14.7g/dL (13.0-17.5) 12.3g/dL (13.0-17.5) Hematocrit 43.2% (39.0-53.0) 36.0% (39.0-53.0) Mean Corpuscular Volume 92fL (79-100) 94fL (79-100) Mean Corpuscular Hemoglobin 31pg (25-35) 32pg (25-35) Mean Corpuscular Hemoglobin Concent 34g/dL (31-37) 34g/dL (31-37) Red Cell Distribution Width 12.9% (11.5-14.5) 13.1% (11.5-14.5) Platelet Count 233x10^3/uL (140-400) 179x10^3/uL (140-400) Neutrophils (%) (Auto) 63% (31-73) 46% (31-73) Lymphocytes (%) (Auto) 29% (24-48) 44% (24-48) Monocytes (%) (Auto) 8% (0-9) 8% (0-9) Eosinophils (%) (Auto) 0% (0-3) 2% (0-3) Basophils (%) (Auto) 1% (0-3) 0% (0-3) Neutrophils # (Auto) 4.2x10^3uL (1.8-7.7) 2.7x10^3uL (1.8-7.7) Lymphocytes # (Auto) 2.0x10^3/uL (1.0-4.8) 2.5x10^3/uL (1.0-4.8) Monocytes # (Auto) 0.5x10^3/uL (0.0-1.1) 0.5x10^3/uL (0.0-1.1) Eosinophils # (Auto) 0.0x10^3/uL (0.0-0.7) 0.1x10^3/uL (0.0-0.7) Basophils # (Auto) 0.0x10^3/uL (0.0-0.2) 0.0x10^3/uL (0.0-0.2) Sodium Level 142mmol/L (136-145) 141mmol/L (136-145) Potassium Level 3.7mmol/L (3.5-5.1) 4.0mmol/L (3.5-5.1) Chloride Level 104mmol/L (98-107) 106mmol/L (98-107) Carbon Dioxide Level 25mmol/L (21-32) 27mmol/L (21-32) Anion Gap 13 (6-14) 8 (6-14) Blood Urea Nitrogen 13mg/dL (8-26) 10mg/dL (8-26) Creatinine 1.0mg/dL (0.7-1.3) 1.0mg/dL (0.7-1.3) Estimated GFR (Cockcroft-Gault) 87.2 87.2 BUN/Creatinine Ratio 13 (6-20) Glucose Level 91mg/dL (70-99) 92mg/dL (70-99) Calcium Level 9.9mg/dL (8.5-10.1) 8.3mg/dL (8.5-10.1) Total Bilirubin 1.0mg/dL (0.2-1.0) Aspartate Amino Transf (AST/SGOT) 40U/L (15-37) Alanine Aminotransferase (ALT/SGPT) 80U/L (16-63) Alkaline Phosphatase 72U/L (46-116) Total Protein 8.8g/dL (6.4-8.2) Albumin 4.5g/dL (3.4-5.0) Albumin/Globulin Ratio 1.0 (1.0-1.7) Lipase 254U/L (73-393) Brief Hospital Course Mr. Rasmussen is a 31 old male admit with acute on chronic abdpain, pancreatitis from priro EtOH abuse out of pain meds per Dr. Blackmon discussed pain med contract, I talked to Dr. Blackmon, 30 percocet 5 given, f/u 2 weeks Discharge Information Condition at Discharge: Improved Follow Up: Weeks Disposition/Orders: D/C to Home Scheduled Dicyclomine Hcl (Dicyclomine Hcl) 1 TAB PO QID Dicyclomine Hcl (Dicyclomine Hcl) 1 TAB PO QID Dicyclomine Hcl (Bentyl) 20 MG PO QID Scheduled PRN Hydrocodone/[place] 5-325 ([place] 5-325 Tablet) 1 TAB PO Q4HRS PRN PRN PAIN Ondansetron (Zofran Odt) 1 TAB SL Q8HRS PRN PRN NAUSEA Patient Instructions Patient Instructions time > 30 min RIO PRO MD Nov 29, 2016 13:46
[2016-11-29 14:30] VITALS: BP 140/91
== END 2016-11-29 18:00 | disposition home or self-care (01) | DRG 439 ==
LOC: ER 14:30 → 5 NORTH 16:43
PROVIDERS: ADMIT Internal Medicine; ATTEND Internal Medicine
DX: K85.20 Alcohol induced acute pancreatitis without necrosis or infection (principal); F11.23 Opioid dependence with withdrawal; K86.0 Alcohol-induced chronic pancreatitis; F17.200 Nicotine dependence, unspecified, uncomplicated; G89.29 Other chronic pain; K58.9 Irritable bowel syndrome, unspecified; Z88.0 Allergy status to penicillin; Z88.1 Allergy status to other antibiotic agents; Z88.8 Allergy status to other drugs, medicaments and biological substances; Z79.899 Other long term (current) drug therapy; T40.2X5A Adverse effect of other opioids, initial encounter
CPT/HCPCS: 36415; 80048; 80053; 83690; 85027; 96361; 96374; 96375; 96376; J2270; J2405; J3010; J7030; Q0162; 99285-25

== ENCOUNTER 2016-12-27 20:10 | Emergency (ER) | payer SELFPAY ==
[~2016-12-27] VITALS: Ht 177.8 cm; Wt 82.1 kg
[2016-12-27] MEDS ORDERED: IV NORMAL SALINE 1000ML BAG 1,000 ML IV SCH (20:52)
[2016-12-27] MEDS ORDERED: ONDANSETRON PF 4 MG/2 ML VIAL. IV ONE (21:00)
[2016-12-27] MEDS ORDERED: MORPHINE SULFATE 2 MG/ML DISP.SYRIN. IV/SQ PRN (21:00)
[2016-12-27 21:02] LABS: BASO % 1 % (0-3); EOS % 0 % (0-3); HEMATOCRIT 41.9 % (39.0-53.0); HEMOGLOBIN 14.4 g/dL (13.0-17.5); LYMPH # 2.8 x10^3/uL (1.0-4.8); LYMPH % 33 % (24-48); MEAN CORPUSCULAR HEMOGLOBIN 32 pg (25-35); MEAN CORPUSCULAR HGB CONC 34 g/dL (31-37); MEAN CORPUSCULAR VOLUME 93 fL (79-100); MONO % 7 % (0-9); NEUT % 59 % (31-73); PLATELET COUNT 267 x10^3/uL (140-400); RED BLOOD COUNT 4.53 x10^6/uL (4.30-5.70); WHITE BLOOD COUNT 8.5 x10^3/uL (4.0-11.0)
--- NOTE | 2016-12-27 21:04 | PHYS DOC ---
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 He states his pain is very similar to his had pancreatitis in the past. He states he has at least once a month. He's been hospitalist twice in the last year for his pancreatitis. She's had some nausea without any vomiting. He does complain of black tarry stools. Review of Systems Review of Systems Constitutional: Denies fever or chills [] Eyes: Denies change in visual acuity, redness, or eye pain [] HENT: Denies nasal congestion or sore throat [] Respiratory: Denies cough or shortness of breath [] Cardiovascular: No additional information not addressed in HPI [] GI: Nausea for abdominal pain, nausea, , dark tarry stools, denies any diarrhea [] : Denies dysuria or hematuria [] Musculoskeletal: Denies back pain or joint pain [] Integument: Denies rash or skin lesions [] Neurologic: Denies headache, focal weakness or sensory changes [] Endocrine: Denies polyuria or polydipsia [] Current Medications Current Medications Current Medications Medications (Trade) Dose Ordered Sig/Kiya Start Time Stop Time Status Last Admin Dose Admin Fentanyl Citrate (Fentanyl 2ml Vial) 50 mcg PRN Q15MIN PRN 12/27/16 21:45 12/28/16 21:44 12/27/16 22:43 50 MCG Morphine Sulfate 2 mg PRN Q15MIN PRN 12/27/16 21:00 12/28/16 20:59 12/27/16 21:15 2 MG Ondansetron HCl (Zofran) 4 mg 1X ONCE 12/27/16 21:00 12/27/16 21:01 DC 12/27/16 21:14 4 MG Sodium Chloride 1,000 ml @ 1,000 mls/hr Q1H 12/27/16 20:52 12/27/16 21:51 DC 12/27/16 21:19 1,000 MLS/HR Allergies Allergies Allergies Coded Allergies Type Severity Reaction Last Updated Verified Penicillins Allergy Intermediate Rash 07/05/16 Yes amoxicillin trihydrate Allergy Intermediate Rash 07/05/16 Yes potassium clavulanate Allergy Intermediate Rash 07/05/16 Yes tramadol Allergy Intermediate "MASSIVE H/A, HIVES, RASH,VOMITING 12/05/15 Yes acetaminophen Adverse Reaction Intermediate nausea 07/05/16 Yes Physical Exam Physical Exam Constitutional: Well developed, well nourished, no acute distress, non-toxic appearance. [] HENT: Normocephalic, atraumatic, bilateral external ears normal, oropharynx moist, no oral exudates, nose normal. [] Eyes: PERRLA, EOMI, conjunctiva normal, no discharge. [] Neck: Normal range of motion, no tenderness, supple, no stridor. [] Cardiovascular:Heart rate regular rhythm, no murmur [] Lungs & Thorax: Bilateral breath sounds clear to auscultation [] Abdomen: Bowel sounds normal, soft, no tenderness, no masses, no pulsatile masses. [] Skin: Warm, dry, no erythema, no rash. [] Back: No tenderness, no CVA tenderness. [] Extremities: No tenderness, no cyanosis, no clubbing, ROM intact, no edema. [] Neurologic: Alert and oriented X 3, normal motor function, normal sensory function, no focal deficits noted. [] Psychologic: Affect normal, judgement normal, mood normal. [] Current Patient Data Vital Signs Vital Signs Date Time Temp Pulse Resp B/P (MAP) Pulse Ox O2 Delivery O2 Flow Rate FiO2 12/27/16 22:43 17 97 Room Air 12/27/16 20:27 98.0 101 169/90 (116) 98.0 Lab Values Laboratory Tests Test 12/27/16 20:21 12/27/16 20:46 12/27/16 22:15 White Blood Count 8.5 x10^3/uL (4.0-11.0) Red Blood Count 4.53 x10^6/uL (4.30-5.70) Hemoglobin 14.4 g/dL (13.0-17.5) Hematocrit 41.9 % (39.0-53.0) Mean Corpuscular Volume 93 fL (79-100) Mean Corpuscular Hemoglobin 32 pg (25-35) Mean Corpuscular Hemoglobin Concent 34 g/dL (31-37) Red Cell Distribution Width 13.0 % (11.5-14.5) Platelet Count 267 x10^3/uL (140-400) Neutrophils (%) (Auto) 59 % (31-73) Lymphocytes (%) (Auto) 33 % (24-48) Monocytes (%) (Auto) 7 % (0-9) Eosinophils (%) (Auto) 0 % (0-3) Basophils (%) (Auto) 1 % (0-3) Neutrophils # (Auto) 5.1 x10^3uL (1.8-7.7) Lymphocytes # (Auto) 2.8 x10^3/uL (1.0-4.8) Monocytes # (Auto) 0.6 x10^3/uL (0.0-1.1) Eosinophils # (Auto) 0.0 x10^3/uL (0.0-0.7) Basophils # (Auto) 0.0 x10^3/uL (0.0-0.2) Prothrombin Time 12.4 SEC (11.7-14.0) Prothrombin Time INR 1.0 (0.8-1.1) Sodium Level 142 mmol/L (136-145) Potassium Level 4.3 mmol/L (3.5-5.1) Chloride Level 104 mmol/L (98-107) Carbon Dioxide Level 29 mmol/L (21-32) Anion Gap 9 (6-14) Blood Urea Nitrogen 17 mg/dL (8-26) Creatinine 1.0 mg/dL (0.7-1.3) Estimated GFR (Cockcroft-Gault) 87.2 Glucose Level 82 mg/dL (70-99) Calcium Level 9.5 mg/dL (8.5-10.1) Magnesium Level 2.2 mg/dL (1.8-2.4) Total Bilirubin 0.9 mg/dL (0.2-1.0) Direct Bilirubin 0.2 mg/dL (0.0-0.2) Aspartate Amino Transferase (AST) 17 U/L (15-37) Alanine Aminotransferase (ALT) 25 U/L (16-63) Alkaline Phosphatase 67 U/L (46-116) Creatine Kinase 74 U/L (39-308) Creatine Kinase MB (Mass) 0.5 ng/mL (0.0-3.6) Creatine Kinase MB Relative Index 0.7 % (0-4) [id number] Natriuretic Peptide 15 pg/mL (0-124) Total Protein 8.0 g/dL (6.4-8.2) Albumin 4.1 g/dL (3.4-5.0) Lipase 197 U/L (73-393) Urine Collection Type Unknown Urine Color Yellow Urine Clarity Clear Urine pH 6.5 Urine Specific [place] >=1.030 Urine Protein 30 mg/dL (NEG-TRACE) Urine Glucose (UA) Negative mg/dL (NEG) Urine Ketones (Stick) Negative mg/dL (NEG) Urine Blood Negative (NEG) Urine Nitrite Negative (NEG) Urine Bilirubin Negative (NEG) Urine Urobilinogen Dipstick 0.2 mg/dL (0.2 mg/dL) Urine Leukocyte Esterase Negative (NEG) Urine RBC Occ /HPF (0-2) Urine WBC Occ /HPF (0-4) Urine Bacteria 0 /HPF (0-FEW) Urine Mucus Marked /LPF Stool Occult Blood Negative (NEG) Laboratory Tests 12/27/16 20:21 Laboratory Tests 12/27/16 20:21 EKG EKG EKG shows sinus rhythm 3 of [address] elevations or T-wave inversions, normal axis, QTC 418 ms, as interpreted by me. Radiology/Procedures Radiology/Procedures [] Impressions: Abdominal pain Course & Med Decision Making Course & Med Decision Making Pertinent Labs and Imaging studies reviewed. (See chart for details) Labs, Hemoccult all negative. Patient's pain was improved with fentanyl. He is requesting narcotic pain meds. He states he he is seen by GI doctor is appointment 2 months and will call to up his appointment. Return precautions given for worsening pain, uncontrolled nausea vomiting, fevers, blood in his stools or other concerns. He is being discharged with 15 tablets of 5/325 one to 2 every 6 hours when necessary pain. He is instructed not to drive his car while taking this medicine as it can impair his judgment and make him sleepy. He is agreeable to this plan be discharged in stable condition. Dragon Disclaimer Dragon Disclaimer This electronic medical record was generated, in whole or in part, using a voice recognition dictation system. Departure Departure Impression: Primary Impression: Abdominal pain Disposition: HOME, SELF-CARE Condition: STABLE Referrals: MARKUS HINES MD (PCP) Patient Instructions: Abdominal Pain Additional Instructions: Your labs and rectal exam did not show any acute abnormalities. Your being discharged home. Patient follow-up with her primary care physician [facility] physician. You being discharged with a few tablets of [place]. Please do not drive your car while taking this medicine as it can impair judgment and make you sleepy. Return ER for severe pain fevers, or other concerns. Scripts Hydrocodone/Apap 5-325 (NORCO 5-325 TABLET) 1 Each Tablet 1-2 TAB PO Q6HRS Y for PAIN, #15 TAB 0 Refills Prov: ESTEE VALLES MD 12/27/16 Problem Qualifiers Primary Impression: Abdominal pain Abdominal location: epigastric Qualified Codes: R10.13 - Epigastric pain ESTEE VALLES MD December 27, 2016 21:04
[2016-12-27 21:11] LABS: PROTHROMBIN TIME PATIENT 12.4 SEC (11.7-14.0)
[2016-12-27 21:16] LABS: BILIRUBIN,URINE NEGATIVE (NEG); GLUCOSE,URINE NEGATIVE (NEG); NITRITE,URINE NEGATIVE (NEG); PH,URINE 6.5; PROTEIN,URINE 30 mg/dL (NEG-TRACE); UROBILINOGEN,URINE 0.2 mg/dL (0.2 mg/dL)
[2016-12-27 21:23] LABS: BACTERIA,URINE 0 /HPF (0-FEW); RBC,URINE OCC /HPF (0-2); WBC,URINE OCC /HPF (0-4)
[2016-12-27 21:26] LABS: CALCIUM 9.5 mg/dL (8.5-10.1); GFR 87.2; POTASSIUM 4.3 mmol/L (3.5-5.1)
[2016-12-27 21:39] LABS: ALBUMIN 4.1 g/dL (3.4-5.0); DIRECT BILIRUBIN 0.2 mg/dL (0.0-0.2); MAGNESIUM 2.2 mg/dL (1.8-2.4); TOTAL BILIRUBIN 0.9 mg/dL (0.2-1.0)
[2016-12-27] MEDS: fentaNYL PF VIAL 100 MCG/2 ML VIAL IV PRN ×3 (21:48→22:43)
[2016-12-27 21:53] LABS: CKMB MASS 0.5 ng/mL (0.0-3.6)
[2016-12-27 22:35] LABS: NEG OBC FOB NEG; POS OBC FOB POS
[2016-12-27 22:45] VITALS: BP 153/99
[2016-12-27] MEDS ORDERED: HYDR-971 PO (22:53)
--- NOTE | 2016-12-28 06:21 | EKG ---
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
--- NOTE | 2016-12-28 07:39 | RAD ---
Portable chest, 12/27/2016: History: Chest pain Comparison is made to a study from 10/12/2012. The heart size and pulmonary vascularity are normal. No pulmonary infiltrates are seen. There is no evidence of pleural fluid. IMPRESSION: No acute cardiopulmonary abnormality is detected.
== END 2016-12-27 23:15 | disposition home or self-care (01) ==
LOC: ER 20:48
DX: R10.13 Epigastric pain (principal); R11.0 Nausea; K58.9 Irritable bowel syndrome, unspecified; Z88.0 Allergy status to penicillin; Z88.1 Allergy status to other antibiotic agents; Z88.8 Allergy status to other drugs, medicaments and biological substances
CPT/HCPCS: 36415; 71010; 80048; 80076; 81001; 82274; 82553; 83690; 83735; 83880; 85027; 85610; 93005; 96361; 96374; 96375; 96376; 99285; J2270; J2405; J3010; J7030

== ENCOUNTER 2017-01-02 07:32 | Emergency (ER) | payer SELFPAY ==
[~2017-01-02] VITALS: Ht 177.8 cm; Wt 80.3 kg
--- NOTE | 2017-01-02 07:55 | PHYS DOC ---
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 Patient states he works at [employer]. He states he did his shift 11 PM to 5 AM. He states after he shift was over he had some breakfast at [employer]. He states he later came with the filuis and family to labor and delivery because the paige is having a baby today. He states they have a 4 hour wait for her labor. He states he decided to come to the ED to be checked out. Patient denies any alcohol use. Denies any fever. Review of Systems Review of Systems Constitutional: Denies fever or chills [] Eyes: Denies change in visual acuity, redness, or eye pain [] HENT: Denies nasal congestion or sore throat [] Respiratory: Denies cough or shortness of breath [] Cardiovascular: No additional information not addressed in HPI [] GI: Left upper quadrant abdominal pain : Denies dysuria or hematuria [] Musculoskeletal: Denies back pain or joint pain [] Integument: Denies rash or skin lesions [] Neurologic: Denies headache, focal weakness or sensory changes [] Endocrine: Denies polyuria or polydipsia [] Current Medications Current Medications Current Medications Medications (Trade) Dose Ordered Sig/Kiya Start Time Stop Time Status Last Admin Dose Admin Famotidine (Pepcid) 20 mg 1X ONCE 01/02/17 10:15 01/02/17 10:16 DC Fentanyl Citrate (Fentanyl 2ml Vial) 75 mcg 1X ONCE 01/02/17 09:30 01/02/17 09:31 DC 01/02/17 09:21 75 MCG Info (Do NOT chart on this entry -- for MONITORING) 1 each PRN DAILY PRN 01/02/17 09:00 01/04/17 08:59 Iohexol (Omnipaque 300 Mg/ml) 75 ml 1X ONCE 01/02/17 08:45 01/02/17 08:52 DC 01/02/17 09:06 75 ML Ondansetron HCl (Zofran) 4 mg 1X ONCE 01/02/17 10:15 01/02/17 10:16 DC Sodium Chloride 1,000 ml @ 100 mls/hr Q10H 01/02/17 10:15 01/02/17 20:14 Allergies Allergies Allergies Coded Allergies Type Severity Reaction Last Updated Verified Penicillins Allergy Intermediate Rash 07/05/16 Yes amoxicillin trihydrate Allergy Intermediate Rash 07/05/16 Yes potassium clavulanate Allergy Intermediate Rash 07/05/16 Yes tramadol Allergy Intermediate "MASSIVE H/A, HIVES, RASH,VOMITING 12/05/15 Yes acetaminophen Adverse Reaction Intermediate nausea 07/05/16 Yes Physical Exam Physical Exam Constitutional: Well developed, well nourished, no acute distress, non-toxic appearance. [] HENT: Normocephalic, atraumatic, bilateral external ears normal, oropharynx moist, no oral exudates, nose normal. [] Eyes: PERRLA, EOMI, conjunctiva normal, no discharge. [] Neck: Normal range of motion, no tenderness, supple, no stridor. [] Cardiovascular:Heart rate regular rhythm, no murmur [] Lungs & Thorax: Bilateral breath sounds clear to auscultation [] Abdomen: Bowel sounds normal, soft, slight left upper quadrant tenderness, no right lower or right upper quadrant tenderness, no masses, no pulsatile masses. [] Skin: Warm, dry, no erythema, no rash. [] Back: No tenderness, no CVA tenderness. [] Extremities: No tenderness, no cyanosis, no clubbing, ROM intact, no edema. [] Neurologic: Alert and oriented X 3, normal motor function, normal sensory function, no focal deficits noted. [] Psychologic: Affect normal, judgement normal, mood normal. [] Current Patient Data Vital Signs Vital Signs Date Time Temp Pulse Resp B/P (MAP) Pulse Ox O2 Delivery O2 Flow Rate FiO2 01/02/17 10:08 Room Air 01/02/17 09:21 18 99 01/02/17 09:15 88 149/70 (96) 01/02/17 07:39 98.2 98.2 Lab Values Laboratory Tests Test 01/02/17 07:52 01/02/17 08:05 Urine Collection Type Unknown Urine Color Yellow Urine Clarity Clear Urine pH 6.0 Urine Specific [place] 1.020 Urine Protein Negative mg/dL (NEG-TRACE) Urine Glucose (UA) Negative mg/dL (NEG) Urine Ketones (Stick) Negative mg/dL (NEG) Urine Blood Negative (NEG) Urine Nitrite Negative (NEG) Urine Bilirubin Negative (NEG) Urine Urobilinogen Dipstick 0.2 mg/dL (0.2 mg/dL) Urine Leukocyte Esterase Negative (NEG) Urine RBC 0 /HPF (0-2) Urine WBC Occ /HPF (0-4) Urine Squamous Epithelial Cells Occ /LPF Urine Bacteria 0 /HPF (0-FEW) Urine Mucus Mod /LPF Urine Opiates Screen Neg (NEG) Urine Methadone Screen Neg (NEG) Urine Barbiturates Neg (NEG) Urine Phencyclidine Screen Neg (NEG) Urine Amphetamine/Methamphetamine Neg (NEG) Urine Benzodiazepines Screen Neg (NEG) Urine Cocaine Screen Neg (NEG) Urine Cannabinoids Screen Neg (NEG) Urine Ethyl Alcohol Neg (NEG) White Blood Count 9.6 x10^3/uL (4.0-11.0) Red Blood Count 4.48 x10^6/uL (4.30-5.70) Hemoglobin 14.4 g/dL (13.0-17.5) Hematocrit 41.0 % (39.0-53.0) Mean Corpuscular Volume 92 fL (79-100) Mean Corpuscular Hemoglobin 32 pg (25-35) Mean Corpuscular Hemoglobin Concent 35 g/dL (31-37) Red Cell Distribution Width 13.4 % (11.5-14.5) Platelet Count 256 x10^3/uL (140-400) Neutrophils (%) (Auto) 64 % (31-73) Lymphocytes (%) (Auto) 28 % (24-48) Monocytes (%) (Auto) 6 % (0-9) Eosinophils (%) (Auto) 1 % (0-3) Basophils (%) (Auto) 1 % (0-3) Neutrophils # (Auto) 6.2 x10^3uL (1.8-7.7) Lymphocytes # (Auto) 2.7 x10^3/uL (1.0-4.8) Monocytes # (Auto) 0.6 x10^3/uL (0.0-1.1) Eosinophils # (Auto) 0.1 x10^3/uL (0.0-0.7) Basophils # (Auto) 0.1 x10^3/uL (0.0-0.2) Sodium Level 139 mmol/L (136-145) Potassium Level 3.5 mmol/L (3.5-5.1) Chloride Level 102 mmol/L (98-107) Carbon Dioxide Level 27 mmol/L (21-32) Anion Gap 10 (6-14) Blood Urea Nitrogen 17 mg/dL (8-26) Creatinine 1.0 mg/dL (0.7-1.3) Estimated GFR (Cockcroft-Gault) 87.2 BUN/Creatinine Ratio 17 (6-20) Glucose Level 103 mg/dL (70-99) H Calcium Level 9.2 mg/dL (8.5-10.1) Total Bilirubin 0.6 mg/dL (0.2-1.0) Aspartate Amino Transferase (AST) 17 U/L (15-37) Alanine Aminotransferase (ALT) 23 U/L (16-63) Alkaline Phosphatase 68 U/L (46-116) Total Protein 7.9 g/dL (6.4-8.2) Albumin 3.9 g/dL (3.4-5.0) Albumin/Globulin Ratio 1.0 (1.0-1.7) Lipase 574 U/L (73-393) H Ethyl Alcohol Level < 10 mg/dL (0-10) Laboratory Tests 01/02/17 08:05 Laboratory Tests 01/02/17 08:05 EKG EKG [] Radiology/Procedures Radiology/Procedures []PROCEDURE: CT ABD PELV W/ IV CONTRST ONLY Indication: Left upper quadrant pain. Axial imaging through the abdomen and pelvis was performed after the administration of intravenous contrast. Correlation is made with prior CT from 10/16/2016. The lung bases are clear. There is mild diffuse low density throughout the liver consistent with fatty infiltration. No discrete liver mass is identified. The gallbladder appears contracted. The pancreas is unremarkable. No peripancreatic inflammation is identified to suggest pancreatitis. No fluid collection is seen. The spleen is unremarkable. No adrenal mass is identified. There is a tiny nonobstructing calculus upper pole left kidney. The kidneys are otherwise unremarkable. Aorta is nonaneurysmal. The small and large bowel loops are normal caliber. No ascites is identified. No inflammatory process is seen. No definite abdominal or pelvic lymphadenopathy is detected. Impression: Mild fatty infiltration of the liver. The study is otherwise unremarkable. No acute feature is detected. DICTATED and SIGNED BY: MARTI GAN MD DATE: 01/02/17 0921 CC: MARKUS HINES MD; JAKE PALACIO APRN ~ Course & Med Decision Making Course & Med Decision Making Pertinent Labs and Imaging studies reviewed. (See chart for details) This is a 31-year-old male patient with history of pancreatitis who presents today with midepigastric and left upper quadrant abdominal pain with nausea that began this morning. Per patient's information he worked his shift at [employer] 11 PM to 5 AM, he states after his shift he had breakfast at [email or web address] , he states he came to the hospital with the fianc and family because finance is in labor and delivery waiting to have a baby he states he decided to come to the ED to be checked out. CBC no acute findings, CMP with no acute findings, lipase 574. CT of the abdomen and pelvic was negative for any acute findings. Patient's pain is well controlled. He states he would like to be discharged so he can go to labor and delivery and be with the fianc because she is about to have a baby. Provided patient a truck mechanic apprentice recommended he follows up as soon as possible. Instructed to return to the ED if symptoms worsen. Dragon Disclaimer Dragon Disclaimer This electronic medical record was generated, in whole or in part, using a voice recognition dictation system. Departure Departure Impression: Primary Impression: Abdominal pain Additional Impressions: Chronic abdominal pain Acute on chronic pancreatitis Disposition: 01 HOME, SELF-CARE Condition: STABLE Referrals: MARKUS HINES MD (PCP) ARLETTE DENSON MD Please establish care with the provided truck mechanic apprentice Patient Instructions: Abdominal Pain, Acute Pancreatitis Additional Instructions: You were seen for abdominal pain related to acute on chronic pancreatitis. We highly recommend you establish care with the provided truck mechanic apprentice and follow-up as soon as possible. Take the prescribed medicines as needed for pain. Come back to the emergency room if symptoms worsen. Scripts Prochlorperazine Maleate (Compazine) 10 Mg Tablet 10 MG PO Q8HRS, #20 TAB Prov: JAKE PALACIO APRN 01/02/17 Hydrocodone/Apap 5-325 (NORCO 5-325 TABLET) 1 Each Tablet 1-2 TAB PO Q4-6HRS, #12 TAB Prov: JAKE PALACIO APRN 01/02/17 Problem Qualifiers Primary Impression: Abdominal pain Abdominal location: epigastric Qualified Codes: R10.13 - Epigastric pain JAKE PALACIO APRN January 02, 2017 07:55
[2017-01-02] MEDS ORDERED: ONDANSETRON PF 4 MG/2 ML VIAL. IV ONE ×2 (08:00→10:15)
[2017-01-02] MEDS ORDERED: fentaNYL PF VIAL 100 MCG/2 ML VIAL IV ONE ×2 (08:00→09:30)
[2017-01-02] MEDS ORDERED: IV NORMAL SALINE 1000ML BAG 1,000 ML IV ONE (08:00)
[2017-01-02] MEDS ORDERED: FAMOTIDINE 20 MG/2 ML VIAL IVP ONE ×2 (08:00→10:15)
[2017-01-02 08:25] LABS: CALCIUM 9.2 mg/dL (8.5-10.1); GFR 87.2; POTASSIUM 3.5 mmol/L (3.5-5.1)
[2017-01-02 08:31] LABS: ALBUMIN 3.9 g/dL (3.4-5.0); TOTAL BILIRUBIN 0.6 mg/dL (0.2-1.0); TOTAL PROTEIN 7.9 g/dL (6.4-8.2)
--- NOTE | 2017-01-02 08:40 | ACF ---
Admission Forms Criteria ABDOMINAL PAIN Clinical Indications for Admission to Inpatient Care (Place 'X' for any and all applicable criteria): Admission is indicated for ANY ONE of the following(1)(2)(3)(4)(5): [ ]I. Inpatient admission required rather than observation care (Also use Abdominal Pain: Observation Care, as appropriate) because of ANY ONE of the following: [ ]a) Severe pain requiring acute inpatient management [ ]b) Identification of etiology/finding that requires inpatient care (eg, aortic dissection, free air) [ ]c) Absent bowel sounds with complete ileus(6) [ ]d) Suspected toxic megacolon [ ]e) Severe electrolyte abnormalities requiring inpatient care [ ]f) High fever or infection requiring inpatient admission as indicated by ANY ONE of following(7)(8): [ ] i) Appropriate outpatient or observational care antimicrobial treatment unavailable, not effective, or not feasible [ ] ii) Documented bacteremia [ ] iii) Temperature > 104.9 degrees F (oral) [ ] iv) T >103.1 F (oral) or < 96.8 F(rectal) that does not respond to all emergency treatment measures [ ]g) Signs of intestinal obstruction [B] [ ]h) Hemodynamic instability [ ]i) IV fluid to replace significant ongoing losses (greater than 3 L/m2 per day) (12)(13) [ ]j) Percutaneous or open drainage (eg, abscess, biliary tract ) procedures [ ]k) Parenteral nutrition regimen that must be implemented on inpatient basis [ ]l) Other condition,treatment or monitoring requiring inpatient admission. [ ]II. Peritoneal signs present [ ]III. Surgery needed that cannot be performed on an ambulatory basis. [ ]IV. Evaluation requires patient to not eat or drink for extended period ( eg, more than 24 hours). [ ]V. Contraindications and/or Inappropriate clinical situations for Observational Care in patients with abdominal pain, when ANY ONE of the following is required: [ ]a) Thorough evaluation is required to prevent catastrophic events due to delays in diagnosing (e.g.Mesenteric ischemia) 1,3 [ ]b) Patient with severe pathology or with chronic symptoms unlikely to improve in the ED stay (3) [ ]. General contraindications and/or Inappropriate clinical situations for Observational Care in patients with abdominal pain, when ANY ONE of the following is required: [ ]a) Prediction of prolongation of LOS based on ANY ONE of the following may be considered as a contraindication for observational care 2, 3, 4, 5, 6, 7, 8, 9, 10, 11 [ ]i) Age > 65 yrs. [ ]ii) Patient arriving by ambulance [ ]iii) Patient with high acuity [ ]iv) Patient requiring vital sign monitoring [ ]v) Patient on IV medication [ ]b) Systolic blood pressures 180mmHg 3,12 [ ]c) Patient with altered mental status including delirium and other alteration of consciousness, (3) [ ]d) Patient whose discharge disposition will be to a half-way home or rehabilitation home should not be managed in Emergency Department Observation Unit. CMS rule requires 3 days hospital stay before such placement.3,13 [ ]e) Patient with failure to thrive due to broad array of etiologies 3,16,17 [ ]f) Inability to ambulate 3,14 Extended stay beyond goal length of stay may be needed for(2)(3): [ ]a) Persistent abdominal pain with suspected intra-abdominal process [ ]b) Diagnosed condition requiring continued stay (e.g., pancreatitis, complicated diverticulitis) [ ]c) Surgery (e.g., colectomy) The original [facility] content created by [employer] has been revised. The portions of the content which have been revised are identified through the use of italic text or in bold, and [facility] has neither reviewed nor approved the modified material.All other unmodified content is copyright [employer].. Please see references footnoted in the original [facility] [facility] edition 2016 YESSY JUAREZ January 02, 2017 08:40
[2017-01-02] MEDS ORDERED: IOHEXOL 300 MG/ML 75 ML VIAL IV ONE (08:45)
[2017-01-02 08:54] LABS: BASO # 0.1 x10^3/uL (0.0-0.2); BASO % 1 % (0-3); EOS % 1 % (0-3); HEMOGLOBIN 14.4 g/dL (13.0-17.5); LYMPH # 2.7 x10^3/uL (1.0-4.8); LYMPH % 28 % (24-48); MEAN CORPUSCULAR HEMOGLOBIN 32 pg (25-35); MEAN CORPUSCULAR HGB CONC 35 g/dL (31-37); MEAN CORPUSCULAR VOLUME 92 fL (79-100); MONO % 6 % (0-9); NEUT % 64 % (31-73); PLATELET COUNT 256 x10^3/uL (140-400); RED BLOOD COUNT 4.48 x10^6/uL (4.30-5.70); RED CELL DISTRIBUTION WIDTH 13.4 % (11.5-14.5); WHITE BLOOD COUNT 9.6 x10^3/uL (4.0-11.0)
[2017-01-02 09:00] LABS: BILIRUBIN,URINE NEGATIVE (NEG); GLUCOSE,URINE NEGATIVE (NEG); NITRITE,URINE NEGATIVE (NEG); PROTEIN,URINE NEGATIVE (NEG-TRACE); UROBILINOGEN,URINE 0.2 mg/dL (0.2 mg/dL)
[2017-01-02] MEDS ORDERED: CONTRAST GIVEN MC PRN (09:00)
[2017-01-02 09:04] LABS: BACTERIA,URINE 0 /HPF (0-FEW); RBC,URINE 0 /HPF (0-2); SQUAMOUS EPITHELIAL CELL,UR OCC /LPF; WBC,URINE OCC /HPF (0-4)
[2017-01-02 09:06] LABS: BARBITURATES NEG (NEG); BENZODIAZEPINES NEG (NEG); CANNABINOIDS NEG (NEG); COCAINE NEG (NEG); METHADONE NEG (NEG); OPIATES NEG (NEG); PHENCYCLIDINE NEG (NEG)
[2017-01-02 09:15] VITALS: BP 149/70
--- NOTE | 2017-01-02 09:26 | RAD ---
Indication: Left upper quadrant pain. Axial imaging through the abdomen and pelvis was performed after the administration of intravenous contrast. Correlation is made with prior CT from 10/16/2016. The lung bases are clear. There is mild diffuse low density throughout the liver consistent with fatty infiltration. No discrete liver mass is identified. The gallbladder appears contracted. The pancreas is unremarkable. No peripancreatic inflammation is identified to suggest pancreatitis. No fluid collection is seen. The spleen is unremarkable. No adrenal mass is identified. There is a tiny nonobstructing calculus upper pole left kidney. The kidneys are otherwise unremarkable. Aorta is nonaneurysmal. The small and large bowel loops are normal caliber. No ascites is identified. No inflammatory process is seen. No definite abdominal or pelvic lymphadenopathy is detected. Impression: Mild fatty infiltration of the liver. The study is otherwise unremarkable. No acute feature is detected.
[2017-01-02] MEDS ORDERED: HYDR-971 PO (10:09)
[2017-01-02] MEDS ORDERED: PROC10TA57 PO (10:09)
[2017-01-02] MEDS ORDERED: IV NORMAL SALINE 1000ML BAG 1,000 ML IV SCH (10:15)
== END 2017-01-02 10:15 | disposition home or self-care (01) ==
LOC: ER 07:32
DX: G89.29 Other chronic pain (principal); K85.90 Acute pancreatitis without necrosis or infection, unspecified; K86.1 Other chronic pancreatitis; K58.9 Irritable bowel syndrome, unspecified; F17.210 Nicotine dependence, cigarettes, uncomplicated; Z88.0 Allergy status to penicillin; Z88.1 Allergy status to other antibiotic agents; Z88.5 Allergy status to narcotic agent; Z88.6 Allergy status to analgesic agent; Z88.8 Allergy status to other drugs, medicaments and biological substances
CPT/HCPCS: 36415; 74177; 80053; 80305; 80320; 81001; 83690; 85027; 96361; 96374; 96375; 96376; 99285; J2405; J3010; J7030; Q9967; S0028; G0480; G0481

== ENCOUNTER 2017-01-06 00:48 | Inpatient (IN) | payer SELFPAY ==
[2017-01-06] VITALS (7 sets, daily range): BP systolic 134–165; BP diastolic 78–94
[~2017-01-06] VITALS: Ht 177.8 cm; Wt 86.8 kg
[~2017-01-06 00:48] MED LIST changes: +PROC10TA57 PO
[2017-01-06] MEDS ORDERED: MORPHINE SULFATE 2 MG/ML DISP.SYRIN. IV PRN (01:00)
[2017-01-06] MEDS: IV NORMAL SALINE 1000ML BAG 1,000 ML IV SCH ×3 (01:29→20:37)
[2017-01-06] MEDS: fentaNYL PF VIAL 100 MCG/2 ML VIAL IV PRN ×7 (01:58→23:19)
[2017-01-06] MEDS ORDERED: HYDR-2762 PO (02:16)
[2017-01-06] MEDS: NICOTINE 14MG PATCH. TD SCH ×2 (02:18→10:17)
[2017-01-06 07:36] LABS: ALBUMIN 3.3 g/dL (3.4-5.0); CALCIUM 8.5 mg/dL (8.5-10.1); CHOLESTEROL/HDL RATIO 5.9; CREATININE 0.9 mg/dL (0.7-1.3); GFR 98.4; POTASSIUM 4.4 mmol/L (3.5-5.1); TOTAL BILIRUBIN 0.4 mg/dL (0.2-1.0); TOTAL PROTEIN 6.5 g/dL (6.4-8.2)
[2017-01-06 07:38] LABS: BASO % 0 % (0-3); EOS % 3 % (0-3); HEMATOCRIT 37.5 % (39.0-53.0); HEMOGLOBIN 12.8 g/dL (13.0-17.5); LYMPH # 3.1 x10^3/uL (1.0-4.8); LYMPH % 51 % (24-48); MEAN CORPUSCULAR HEMOGLOBIN 32 pg (25-35); MEAN CORPUSCULAR HGB CONC 34 g/dL (31-37); MEAN CORPUSCULAR VOLUME 94 fL (79-100); MONO % 7 % (0-9); NEUT % 40 % (31-73); PLATELET COUNT 199 x10^3/uL (140-400); RED BLOOD COUNT 3.99 x10^6/uL (4.30-5.70); RED CELL DISTRIBUTION WIDTH 13.3 % (11.5-14.5)
[2017-01-06] MEDS: ONDANSETRON PF 4 MG/2 ML VIAL. IV PRN ×2 (10:17→18:02)
[2017-01-06] MEDS ORDERED: fentaNYL 75MCG/HR PATCH 1 PATCH PATCH.TD72 TD SCH (14:00)
[2017-01-06] MEDS ORDERED: ONDANSETRON ODT 4 MG TAB.RAPDIS. PO PRN (14:15)
--- NOTE | 2017-01-06 14:56 | PDOC2 ---
GI CONSULT Reason For Consult: abd pain, history of "pancreatitis" HPI: HPI: 31 yo WM with admitted alcoholism in past but stopped drinking Apr 2016- in past had abd pain but not diagnosed with "pancreatitis" until late last year and this year- in ER here numerous times with recurrent periumbilical abd pain with rad to back- lipase usually normal but was as high as 1500 this spring- imaging has been negative for pancreatitis or gallstones but did have elevated ALT in past- pain not triggered by most meals but increased with fatty foods- taking hydrocodone from his PCP for this pain and diagnosis of "pancreatitis". Also has different crampy lower abd pain and has given Bentyl which is helpful for presumed IBS- he describes loose stools no melena but occasionally "fatty" . One one visit to our GI offices is reported by patient and no further w/u of presumed pancreatitis has been done. Admitted with this smae painful symptoms in spite of normal lipase and CT scan PMH: PMH: presumed pancreatitis- pain and elevated liapse on several occasional with normal imaging- presumed from prior heavy alcohol in past (stopped 03/2016) FH: Family History: No pertinent hx Social History: ALCOHOL: other (heavy in past- sober since Apr 2016) Drugs: None, Other ROS: GEN: Denies fevers, chills, sweats HEENT: Denies blurred vision, sore throat CV: Denies chest pain RESP: Denies shortness of air, cough GI: Per HPI : Denies hematuria, dysuria ENDO: Denies weight changes NEURO: Denies confusion, dizziness MSK: Denies weakness, joint pain/swelling SKIN: Denies jaundice, pruritus Vitals: Vitals: Vital Signs Date Time Temp Pulse Resp B/P (MAP) Pulse Ox O2 Delivery O2 Flow Rate FiO2 01/06/17 10:40 97.9 94 18 146/94 (111) 100 Room Air 97.9 Labs: Labs: Laboratory Tests Test 01/06/17 06:50 White Blood Count 6.0 x10^3/uL (4.0-11.0) Red Blood Count 3.99 x10^6/uL (4.30-5.70) Hemoglobin 12.8 g/dL (13.0-17.5) Hematocrit 37.5 % (39.0-53.0) Mean Corpuscular Volume 94 fL (79-100) Mean Corpuscular Hemoglobin 32 pg (25-35) Mean Corpuscular Hemoglobin Concent 34 g/dL (31-37) Red Cell Distribution Width 13.3 % (11.5-14.5) Platelet Count 199 x10^3/uL (140-400) Neutrophils (%) (Auto) 40 % (31-73) Lymphocytes (%) (Auto) 51 % (24-48) Monocytes (%) (Auto) 7 % (0-9) Eosinophils (%) (Auto) 3 % (0-3) Basophils (%) (Auto) 0 % (0-3) Neutrophils # (Auto) 2.4 x10^3uL (1.8-7.7) Lymphocytes # (Auto) 3.1 x10^3/uL (1.0-4.8) Monocytes # (Auto) 0.4 x10^3/uL (0.0-1.1) Eosinophils # (Auto) 0.2 x10^3/uL (0.0-0.7) Basophils # (Auto) 0.0 x10^3/uL (0.0-0.2) Sodium Level 140 mmol/L (136-145) Potassium Level 4.4 mmol/L (3.5-5.1) Chloride Level 104 mmol/L (98-107) Carbon Dioxide Level 27 mmol/L (21-32) Anion Gap 9 (6-14) Blood Urea Nitrogen 13 mg/dL (8-26) Creatinine 0.9 mg/dL (0.7-1.3) Estimated GFR (Cockcroft-Gault) 98.4 BUN/Creatinine Ratio 14 (6-20) Glucose Level 86 mg/dL (70-99) Calcium Level 8.5 mg/dL (8.5-10.1) Total Bilirubin 0.4 mg/dL (0.2-1.0) Aspartate Amino Transf (AST/SGOT) 14 U/L (15-37) Alanine Aminotransferase (ALT/SGPT) 22 U/L (16-63) Alkaline Phosphatase 53 U/L (46-116) Lactate Dehydrogenase 93 U/L (85-227) Total Protein 6.5 g/dL (6.4-8.2) Albumin 3.3 g/dL (3.4-5.0) Albumin/Globulin Ratio 1.0 (1.0-1.7) Triglycerides Level 313 mg/dL (0-150) Cholesterol Level 201 mg/dL (0-200) LDL Cholesterol, Calculated 104 mg/dL (0-100) VLDL Cholesterol, Calculated 63 mg/dL (0-40) Non-HDL Cholesterol Calculated 167 mg/dL (0-129) HDL Cholesterol 34 mg/dL (40-60) Cholesterol/HDL Ratio 5.9 Amylase Level 99 U/L (25-115) Lipase 381 U/L (73-393) Allergies: Coded Allergies: Penicillins (Verified Allergy, Intermediate, Rash, 07/05/16) amoxicillin trihydrate (Verified Allergy, Intermediate, Rash, 07/05/16) morphine (Verified Allergy, Intermediate, 01/06/17) MAKES SKIN "BLOTCHY" potassium clavulanate (Verified Allergy, Intermediate, Rash, 07/05/16) tramadol (Verified Allergy, Intermediate, "MASSIVE H/A, HIVES, RASH, VOMITING, 12/05/15) acetaminophen (Verified Adverse Reaction, Intermediate, nausea, 07/05/16) Medications: Current Medications Medications (Trade) Dose Ordered Sig/Kiya Route PRN Reason Start Time Stop Time Status Last Admin Dose Admin Sodium Chloride 1,000 ml @ 100 mls/hr Q10H IV 01/06/17 01:00 01/06/17 10:17 Lorazepam (Ativan) 2 mg Q6HRS IV 01/06/17 06:00 01/06/17 06:16 Fentanyl Citrate (Fentanyl 2ml Vial) 50 mcg PRN Q2HR PRN IV SEVERE PAIN 01/06/17 01:45 01/06/17 14:09 Nicotine (Nicoderm Cq 14mg) 1 patch DAILY TD 01/06/17 02:30 01/06/17 10:17 Ondansetron HCl (Zofran) 4 mg PRN Q6HRS PRN IV NAUSEA/VOMITING 01/06/17 09:15 01/06/17 10:17 Fentanyl (Duragesic 75mcg/ Hr Patch) 1 patch Q3DAYS TD 01/06/17 14:00 01/06/17 14:09 Imaging: Imaging: CT PE: GEN: NAD HEENT: Atraumatic, PERRLA LUNGS: CTAB HEART: RRR, no murmurs ABD: soft mildly tender periumbilical, S/ND, no masses EXTREMITY: No edema- lots of tattoos SKIN: No rashes, no jaundice NEURO/PSYCH: A & O 3 A/P: A/P: Abd pain- two types- lower crampy and upper sharp with rad to back- had elevated lipase in past in ER but imaging negative- presumed to be recurrent pancreatitis from prior undiagnosed alcohol related pancreatitis in past- taking hydrocodone and coming to ER regularly. Bentyl for IBS seems to help lower abd pain- now CT and labs are normal Plan- CLD since regular food does not seem to increase pain needs EUS as outpt to determine chronic pancreatitis and also needs better management than hydrocodone- here just getting more pain meds DESIREE SCHNEIDER MD January 06, 2017 14:56
[2017-01-06] MEDS: GEMFIBROZIL 600 MG TABLET. PO SCH (16:07)
[2017-01-06] MEDS: DICYCLOMINE HCL 10 MG CAPSULE PO SCH ×2 (16:07→20:36)
[2017-01-06] MEDS: HYDROcodone/APAP 7.5/325MG 1 TAB TABLET PO PRN (16:07)
--- NOTE | 2017-01-06 16:14 | HP ---
ADMIT DATE: 01/06/2017 CHIEF COMPLAINT: Abdominal pain. HISTORY OF PRESENT ILLNESS: The patient is a pleasant 31-year-old male who presents with abdominal pain to [facility]. He was transferred here. His lipase is 381, appears he has pancreatitis. PAST MEDICAL HISTORY: Previous narcotic dependence; previous pancreatitis, suspect familial versus some other cause. ALLERGIES: PENICILLIN, TYLENOL, AMOXICILLIN, TRIHYDRATE, MORPHINE, POTASSIUM, ____, AND ULTRAM. FAMILY HISTORY: Pancreatitis. SOCIAL HISTORY: He used to do narcotics. I think he drinks socially and smokes socially. He wants to go to medical school. MEDICATIONS: Reviewed, please refer to the MRAD. REVIEW OF SYSTEMS: GENERAL: No history of weight change, weakness or fevers. SKIN: No bruising, hair changes or rashes. EYES: No blurred, double or loss of vision. NOSE AND THROAT: No history of nosebleeds, hoarseness or sore throat. HEART: No history of palpitations, chest pain or shortness of breath on exertion. LUNGS: Denies cough, hemoptysis, wheezing or shortness of breath. GASTROINTESTINAL: He complains of abdominal pain. Denies changes in appetite, nausea, vomiting, diarrhea or constipation. GENITOURINARY: No history of frequency, urgency, hesitancy or nocturia. NEUROLOGIC: Denies history of numbness, tingling, tremor or weakness. PSYCHIATRIC: No history of panic, anxiety or depression. ENDOCRINE: No history of heat or cold intolerance, polyuria or polydipsia. EXTREMITIES: Denies muscle weakness, joint pain, pain on walking or stiffness. PHYSICAL EXAMINATION: VITAL SIGNS: Temperature afebrile, pulse 67, respirations 21, blood pressure 144/98. GENERAL: He is alert, cooperative, requesting fentanyl. HEART: Normal S1, S2. LUNGS: Clear. ABDOMEN: Soft, decreased bowel sounds, tender. EXTREMITIES: No edema. SKIN: No rashes. PSYCHIATRIC: He is pleasant. ENDOCRINE: No thyromegaly. LYMPHATICS: No cervical nodes. HEMATOPOIETIC: No bruising. ASSESSMENT AND PLAN: [id number] pancreatitis, suspect possibly secondary to the familial issues or even his high triglycerides (I am not sure if the triglycerides came before the pancreatitis or after). The patient is being admitted. We will use IV fentanyl per his request. Recheck his lipase in the morning. Consult GI. We will start gemfibrozil 600 p.o. b.i.d. I counseled him to try to avoid narcotics. RODRIGUEZ GONZALES DO DR: KARIE/niranjan JOB#: [id number] / [id number]
[2017-01-07 03:00] VITALS: BP 142/71
[2017-01-07] MEDS: fentaNYL PF VIAL 100 MCG/2 ML VIAL IV PRN ×2 (05:31→20:22)
[2017-01-07] MEDS: IV NORMAL SALINE 1000ML BAG 1,000 ML IV SCH ×2 (05:39→15:13)
[2017-01-07 07:00] VITALS: BP 119/76
[2017-01-07] MEDS: GEMFIBROZIL 600 MG TABLET. PO SCH ×2 (08:58→16:44)
[2017-01-07] MEDS: DICYCLOMINE HCL 10 MG CAPSULE PO SCH ×4 (08:58→20:19)
[2017-01-07] MEDS: NICOTINE 14MG PATCH. TD SCH (09:00)
[2017-01-07] MEDS ORDERED: CALCIUM CARBONATE 500 MG TAB.CHEW PO PRN (10:45)
--- NOTE | 2017-01-07 10:46 | PDOC ---
Subjective: Subjective: Pain 5/10, upper abd. Trying clears. Has been asleep, now has hiccups. Working at [employer], says has to wait for insurance. Denies alcohol use. Objective: Vital Signs: Vital Signs Date Time Temp Pulse Resp B/P (MAP) Pulse Ox O2 Delivery O2 Flow Rate FiO2 01/07/17 06:01 97 Room Air 01/07/17 03:00 97.7 83 18 142/71 (94) 97.7 PE: GEN: NAD, hiccups LUNGS: CTAB HEART: RRR ABD: epigastric discomfort NEURO/PSYCH: A & O 3 A/P: Abd pain -thought to be related to previous alcoholic pancreatitis, now sober -does have dyslipidemia/hypertriglyceridemia -lipase and LFTs, imaging normal -on clear liquids -has Fentanyl, hydrocodone, Bentyl Hiccups -- Dr. Garzon previously discussed EUS. Continue same per GI, added PPI and antacid if needed. CRESCENCIO MALDONADO January 07, 2017 10:46
[2017-01-07 11:00] VITALS: BP 120/65
[2017-01-07] MEDS ORDERED: PANTOPRAZOLE 40 MG TABLET.DR. PO SCH (11:30)
[2017-01-07 13:19] LABS: NEG OBC GOB NEG; POS OBC GOB POS
[2017-01-07 15:00] VITALS: BP 145/63
[2017-01-07] MEDS: HYDROcodone/APAP 7.5/325MG 1 TAB TABLET PO PRN ×2 (15:10→19:34)
[2017-01-07] MEDS: ONDANSETRON PF 4 MG/2 ML VIAL. IV PRN ×2 (15:21→20:19)
[2017-01-07] MEDS: PANTOPRAZOLE 40 MG TABLET.DR. PO SCH (16:44)
--- NOTE | 2017-01-07 16:56 | PN ---
PROGRESS NOTES Subjective Subjective Patient doing well, abd pain controlled with pain meds, tolerated CLD and fluids ok. However, around noontime, pt became suddenly nauseous, went to restroom and vomited coffee ground emesis, blood tinged, nausea resolved after emesis. First time occurrence of emesis with that appearance. Pt denies any melena or hematochezia. Objective Objective Vital Signs Date Time Temp Pulse Resp B/P (MAP) Pulse Ox O2 Delivery O2 Flow Rate FiO2 01/07/17 16:10 18 Room Air 01/07/17 11:00 98.0 81 120/65 (83) 91 98.0 Intake and Output 01/07/17 07:00 Intake Total 2800 ml Balance 2800 ml Intake Oral 1800 ml IV Total 1000 ml # Voids 10 # Bowel Movements 2 Physical Exam Physical Exam Gen: nad, aaox3 HEENT: nc, at, eomi Heart: S1 S2, rrr Lungs: ctabl, no wr Abd: soft, nd, nt, +bs Ext: no c/c/e Assessment Assessment 31yo male with history of alcoholism, IBS p/w acute abdominal pain, admitted for presumed acute on chronic pancreatitis although normal lipase and CT abd. Pt now with acute episode of hematemesis. Plan Plan of Care 1. Hematemesis: gastric occult positive, cont fluids, CLD, CBC now, cont zofran , pantoprazole increased to BID, low threshold to change to IV 2. Abd pain: controlled, cont fentanyl and hydrocodone for breakthrough, suspicious pain possibly from gastric ulcer 3. Presumptive chronic pancreatitis: will need outpt EUS 4. IBS: cont bentyl FEN: cont IVF, replete lytes, will make NPO if another episode of hematemesis PPx: no chemical anticoagulation after hematemesis Dispo: cont inpt care Comment Review of Relevant I have reviewed the following items evita (where applicable) has been applied. Labs Laboratory Tests Test 01/06/17 06:50 01/07/17 12:30 White Blood Count 6.0 x10^3/uL (4.0-11.0) Red Blood Count 3.99 x10^6/uL (4.30-5.70) Hemoglobin 12.8 g/dL (13.0-17.5) Hematocrit 37.5 % (39.0-53.0) Mean Corpuscular Volume 94 fL (79-100) Mean Corpuscular Hemoglobin 32 pg (25-35) Mean Corpuscular Hemoglobin Concent 34 g/dL (31-37) Red Cell Distribution Width 13.3 % (11.5-14.5) Platelet Count 199 x10^3/uL (140-400) Neutrophils (%) (Auto) 40 % (31-73) Lymphocytes (%) (Auto) 51 % (24-48) Monocytes (%) (Auto) 7 % (0-9) Eosinophils (%) (Auto) 3 % (0-3) Basophils (%) (Auto) 0 % (0-3) Neutrophils # (Auto) 2.4 x10^3uL (1.8-7.7) Lymphocytes # (Auto) 3.1 x10^3/uL (1.0-4.8) Monocytes # (Auto) 0.4 x10^3/uL (0.0-1.1) Eosinophils # (Auto) 0.2 x10^3/uL (0.0-0.7) Basophils # (Auto) 0.0 x10^3/uL (0.0-0.2) Sodium Level 140 mmol/L (136-145) Potassium Level 4.4 mmol/L (3.5-5.1) Chloride Level 104 mmol/L (98-107) Carbon Dioxide Level 27 mmol/L (21-32) Anion Gap 9 (6-14) Blood Urea Nitrogen 13 mg/dL (8-26) Creatinine 0.9 mg/dL (0.7-1.3) Estimated GFR (Cockcroft-Gault) 98.4 BUN/Creatinine Ratio 14 (6-20) Glucose Level 86 mg/dL (70-99) Calcium Level 8.5 mg/dL (8.5-10.1) Total Bilirubin 0.4 mg/dL (0.2-1.0) Aspartate Amino Transf (AST/SGOT) 14 U/L (15-37) Alanine Aminotransferase (ALT/SGPT) 22 U/L (16-63) Alkaline Phosphatase 53 U/L (46-116) Lactate Dehydrogenase 93 U/L (85-227) Total Protein 6.5 g/dL (6.4-8.2) Albumin 3.3 g/dL (3.4-5.0) Albumin/Globulin Ratio 1.0 (1.0-1.7) Triglycerides Level 313 mg/dL (0-150) Cholesterol Level 201 mg/dL (0-200) LDL Cholesterol, Calculated 104 mg/dL (0-100) VLDL Cholesterol, Calculated 63 mg/dL (0-40) Non-HDL Cholesterol Calculated 167 mg/dL (0-129) HDL Cholesterol 34 mg/dL (40-60) Cholesterol/HDL Ratio 5.9 Amylase Level 99 U/L (25-115) Lipase 381 U/L (73-393) Gastric Fluid Occult Blood Positive (NEG) Laboratory Tests Test 01/07/17 12:30 Gastric Fluid Occult Blood Positive (NEG) Medications Current Medications Sodium Chloride 1,000 ml @ 100 mls/hr Q10H IV Last administered on 01/07/17 15:13; Start 01/06/17 at 01:00 Lorazepam (Ativan) 2 mg PRN Q6HRS PRN IV AGITATION; Start 01/06/17 at 01:00; Stop 01/06/17 at 01:22; Status DC Morphine Sulfate 2 mg PRN Q2HR PRN IV SEVERE PAIN; Start 01/06/17 at 01:00; Stop 01/06/17 at 01:35; Status DC Lorazepam (Ativan) 2 mg Q6HRS IV Last administered on 01/07/17 05:31; Start at 06:00; Stop 01/07/17 at 16:37; Status DC Fentanyl Citrate (Fentanyl 2ml Vial) 50 mcg PRN Q2HR PRN IV SEVERE PAIN Last administered on 01/07/17 05:31; Start 01/06/17 at 01:45; Stop 01/07/17 at 16:37 ; Status DC Nicotine (Nicoderm Cq 14mg) 1 patch DAILY TD Last administered on 01/07/17 09: 00; Start 01/06/17 at 02:30 Ondansetron HCl (Zofran) 4 mg PRN Q6HRS PRN IV NAUSEA/VOMITING Last administered on 01/07/17 15:21; Start 01/06/17 at 09:15 Fentanyl (Duragesic 75mcg/ Hr Patch) 1 patch Q3DAYS TD Last administered on 14:09; Start 01/06/17 at 14:00 Gemfibrozil (Lopid) 600 mg BIDBFRMEAL PO Last administered on 01/07/17 16:44; Start 01/06/17 at 16:30 Acetaminophen/ Hydrocodone Bitart (Lortab 7.5/325) 1 tab PRN Q4HRS PRN PO PAIN Last administered on 01/07/17 15:10; Start 01/06/17 at 14:15 Ondansetron HCl (Zofran Odt) 4 mg PRN Q8HRS PRN PO NAUSEA Last administered on 01/07/17 12:59; Start 01/06/17 at 14:15 Dicyclomine HCl (Bentyl) 20 mg QIDACHS PO Last administered on 01/07/17 16:44 ; Start 01/06/17 at 16:30 Pantoprazole Sodium (Protonix) 40 mg DAILYAC PO Last administered on 01/07/17 11:39; Start 01/07/17 at 11:30; Stop 01/07/17 at 16:37; Status DC Calcium Carbonate/ Glycine (Tums) 500 mg PRN AFTMEALHC PRN PO INDIGESTION; Start 01/07/17 at 10:45 Fentanyl Citrate (Fentanyl 2ml Vial) 50 mcg PRN Q6HRS PRN IV SEVERE PAIN; Start 01/08/17 at 01:45 Lorazepam (Ativan) 0.5 mg Q6HRS IV ; Start 01/07/17 at 18:00; Stop 01/07/17 at 18:00; Status DC Pantoprazole Sodium (Protonix) 40 mg BIDAC PO Last administered on 01/07/17 16 :44; Start 01/07/17 at 17:00 Lorazepam (Ativan) 0.5 mg PRN Q6HRS PRN IV ANXIETY / AGITATION; Start 01/07/17 at 18:00 Active Scripts Active Dicyclomine Hcl 20 Mg Tablet 1 Tab PO QID Zofran Odt (Ondansetron) 4 Mg Tab.rapdis 1 Tab SL Q8HRS PRN Reported Hydrocodone-Apap 7.5-325 (Hydrocodone Bit/Acetaminophen) 1 Each Tablet 1 Tab PO PRN Q4HRS PRN Vitals/I & O Vital Sign - Last 24 Hours 01/06/17 01/06/17 01/06/17 01/06/17 19:00 20:00 20:36 23:00 Temp 97.5 97.5 97.5 97.5 Pulse 81 98 Resp 18 16 B/P (MAP) 134/84 (101) 146/78 (100) Pulse Ox 96 96 100 O2 Delivery Room Air Room Air Room Air 01/06/17 01/07/17 01/07/17 01/07/17 23:19 03:00 05:31 06:01 Temp 97.7 97.7 Pulse 83 Resp 18 B/P (MAP) 142/71 (94) Pulse Ox 96 97 97 97 O2 Delivery Room Air Room Air Room Air Room Air 01/07/17 01/07/17 01/07/17 01/07/17 07:00 08:00 11:00 15:10 Temp 98.8 98.0 98.8 98.0 Pulse 86 81 Resp 18 18 18 B/P (MAP) 119/76 (90) 120/65 (83) Pulse Ox 98 91 O2 Delivery Room Air Room Air Room Air Room Air 01/07/17 16:10 Resp 18 O2 Delivery Room Air Intake and Output 01/06/17 01/06/17 01/07/17 15:00 23:00 07:00 Intake Total 1800 ml 1000 ml Balance 1800 ml 1000 ml MARKUS HINES MD January 07, 2017 16:56
[2017-01-07 17:46] LABS: HEMATOCRIT 34.1 % (39.0-53.0); HEMOGLOBIN 12.3 g/dL (13.0-17.5); RED BLOOD COUNT 3.76 x10^6/uL (4.30-5.70); RED CELL DISTRIBUTION WIDTH 12.8 % (11.5-14.5); WHITE BLOOD COUNT 10.3 x10^3/uL (4.0-11.0)
[2017-01-07 18:28] LABS: ALBUMIN 3.4 g/dL (3.4-5.0); CALCIUM 8.6 mg/dL (8.5-10.1); CREATININE 0.9 mg/dL (0.7-1.3); GFR 98.4; POTASSIUM 3.8 mmol/L (3.5-5.1); TOTAL PROTEIN 6.9 g/dL (6.4-8.2)
[2017-01-07] MEDS ORDERED: ONDANSETRON ODT 4 MG TAB.RAPDIS. PO PRN (18:45)
[2017-01-07 19:50] VITALS: BP 136/95
[2017-01-07] MEDS ORDERED: PROCHLORPERAZINE 10 MG/2 ML VIAL. IV PRN (23:15)
[2017-01-07 23:18] VITALS: BP 149/97
[2017-01-08] MEDS: IV NORMAL SALINE 1000ML BAG 1,000 ML IV SCH ×2 (02:23→12:36)
[2017-01-08] MEDS: fentaNYL PF VIAL 100 MCG/2 ML VIAL IV PRN ×3 (02:29→14:08)
[2017-01-08] MEDS: ONDANSETRON PF 4 MG/2 ML VIAL. IV PRN (02:31)
[2017-01-08 03:30] VITALS: BP 151/93
[2017-01-08 07:00] VITALS: BP 136/80
[2017-01-08] MEDS: GEMFIBROZIL 600 MG TABLET. PO SCH ×2 (07:38→16:35)
[2017-01-08] MEDS: DICYCLOMINE HCL 10 MG CAPSULE PO SCH ×4 (07:38→20:07)
[2017-01-08] MEDS: PANTOPRAZOLE 40 MG TABLET.DR. PO SCH ×2 (07:38→16:35)
[2017-01-08] MEDS: HYDROcodone/APAP 7.5/325MG 1 TAB TABLET PO PRN ×3 (07:40→17:24)
[2017-01-08] MEDS: NICOTINE 14MG PATCH. TD SCH (09:20)
[2017-01-08 11:00] VITALS: BP 134/79
--- NOTE | 2017-01-08 12:32 | PDOC ---
Subjective: Subjective: Feeling better today. Pain at normal level - 6/10. No n/v today. Wants to try eating more. Family (mother?) at bedside concerned about dark emesis yesterday w/ +gastric occult blood. Pt says no previous EGD, has had three colonoscopies. Objective: Objective: Reviewed other notes. PPI was increased to BID. Per RN - coffee-ground emesis yesterday, no recurrence. Pain controlled, asking to advance diet. Hgb and BUN WNL/stable. Vital Signs: Vital Signs Date Time Temp Pulse Resp B/P (MAP) Pulse Ox O2 Delivery O2 Flow Rate FiO2 01/08/17 12:03 18 95 Room Air 01/08/17 11:00 97.8 103 134/79 (97) 97.8 Labs: Laboratory Tests Test 01/07/17 12:30 01/07/17 17:30 Gastric Fluid Occult Blood Positive White Blood Count 10.3 x10^3/uL Red Blood Count 3.76 x10^6/uL Hemoglobin 12.3 g/dL Hematocrit 34.1 % Mean Corpuscular Volume 91 fL Mean Corpuscular Hemoglobin 33 pg Mean Corpuscular Hemoglobin Concent 36 g/dL Red Cell Distribution Width 12.8 % Platelet Count 208 x10^3/uL Sodium Level 136 mmol/L Potassium Level 3.8 mmol/L Chloride Level 101 mmol/L Carbon Dioxide Level 31 mmol/L Anion Gap 4 Blood Urea Nitrogen 7 mg/dL Creatinine 0.9 mg/dL Estimated GFR (Cockcroft-Gault) 98.4 BUN/Creatinine Ratio 8 Glucose Level 89 mg/dL Calcium Level 8.6 mg/dL Total Bilirubin 1.0 mg/dL Aspartate Amino Transf (AST/SGOT) 24 U/L Alanine Aminotransferase (ALT/SGPT) 26 U/L Alkaline Phosphatase 59 U/L Total Protein 6.9 g/dL Albumin 3.4 g/dL Albumin/Globulin Ratio 1.0 PE: GEN: NAD, sitting on edge of bed w/ lunch tray LUNGS: CTAB HEART: RRR ABD: less tender, still epigastric/LUQ NEURO/PSYCH: A & O 3 A/P: Abd pain -related to previous alcoholic pancreatitis -lipase and LFTs, imaging normal Coffee-ground emesis, gastric occult blood + -once yesterday afternoon, no recurrence, labs stable -on PPI BID -no previous EGD -Hgb stable, technically low (12.3) -- Feeling better, asking to advance diet. ADAT. Outpt EUS recommended. Continue PPI. CRESCENCIO MALDONADO January 08, 2017 12:31
[2017-01-08 15:00] VITALS: BP 171/95
--- NOTE | 2017-01-08 16:30 | PDOC ---
PROGRESS NOTES Subjective Subjective Doing better, no episodes of emesis, tolerating diet, requesting to advance diet. Pain at baseline. Denies melena, hematochezia. Ok with discharge tomorrow am, hesitant about dc today Objective Objective Vital Signs Date Time Temp Pulse Resp B/P (MAP) Pulse Ox O2 Delivery O2 Flow Rate FiO2 01/08/17 15:00 97.8 96 18 171/95 (120) 98 Room Air 97.8 Intake and Output 01/08/17 07:00 Intake Total 3160 ml Balance 3160 ml Intake Oral 1160 ml IV Total 2000 ml # Voids 1 Physical Exam Physical Exam Gen: aaox3, nad HEENT: nc, at, eomi Neuro: CN II-XII intact, no motor or sensory deficits Psych: no anxiety/depression appreciated Assessment Assessment 31yo male with history of alcoholism, IBS p/w acute abdominal pain, admitted for presumed acute on chronic pancreatitis although normal lipase and CT abd. Pt now with acute episode of hematemesis. Plan Plan of Care 1. Hematemesis: gastric occult positive, ADAT, dc fluids, CBC stable, cont zofran, pantoprazole increased to BID, low threshold to change to IV 2. Abd pain: controlled, cont fentanyl and hydrocodone for breakthrough, suspicious pain possibly from gastric ulcer 3. Presumptive chronic pancreatitis: will need outpt EUS 4. IBS: cont bentyl FEN: dc IVF, replete lytes, will make NPO if another episode of hematemesis PPx: no chemical anticoagulation after hematemesis Dispo: cont inpt care, likely dc this evening Comment Review of Relevant I have reviewed the following items evita (where applicable) has been applied. Labs Laboratory Tests Test 01/07/17 12:30 01/07/17 17:30 Gastric Fluid Occult Blood Positive (NEG) White Blood Count 10.3 x10^3/uL (4.0-11.0) Red Blood Count 3.76 x10^6/uL (4.30-5.70) Hemoglobin 12.3 g/dL (13.0-17.5) Hematocrit 34.1 % (39.0-53.0) Mean Corpuscular Volume 91 fL (79-100) Mean Corpuscular Hemoglobin 33 pg (25-35) Mean Corpuscular Hemoglobin Concent 36 g/dL (31-37) Red Cell Distribution Width 12.8 % (11.5-14.5) Platelet Count 208 x10^3/uL (140-400) Sodium Level 136 mmol/L (136-145) Potassium Level 3.8 mmol/L (3.5-5.1) Chloride Level 101 mmol/L (98-107) Carbon Dioxide Level 31 mmol/L (21-32) Anion Gap 4 (6-14) Blood Urea Nitrogen 7 mg/dL (8-26) Creatinine 0.9 mg/dL (0.7-1.3) Estimated GFR (Cockcroft-Gault) 98.4 BUN/Creatinine Ratio 8 (6-20) Glucose Level 89 mg/dL (70-99) Calcium Level 8.6 mg/dL (8.5-10.1) Total Bilirubin 1.0 mg/dL (0.2-1.0) Aspartate Amino Transf (AST/SGOT) 24 U/L (15-37) Alanine Aminotransferase (ALT/SGPT) 26 U/L (16-63) Alkaline Phosphatase 59 U/L (46-116) Total Protein 6.9 g/dL (6.4-8.2) Albumin 3.4 g/dL (3.4-5.0) Albumin/Globulin Ratio 1.0 (1.0-1.7) Laboratory Tests Test 01/07/17 17:30 White Blood Count 10.3 x10^3/uL (4.0-11.0) Red Blood Count 3.76 x10^6/uL (4.30-5.70) Hemoglobin 12.3 g/dL (13.0-17.5) Hematocrit 34.1 % (39.0-53.0) Mean Corpuscular Volume 91 fL (79-100) Mean Corpuscular Hemoglobin 33 pg (25-35) Mean Corpuscular Hemoglobin Concent 36 g/dL (31-37) Red Cell Distribution Width 12.8 % (11.5-14.5) Platelet Count 208 x10^3/uL (140-400) Sodium Level 136 mmol/L (136-145) Potassium Level 3.8 mmol/L (3.5-5.1) Chloride Level 101 mmol/L (98-107) Carbon Dioxide Level 31 mmol/L (21-32) Anion Gap 4 (6-14) Blood Urea Nitrogen 7 mg/dL (8-26) Creatinine 0.9 mg/dL (0.7-1.3) Estimated GFR (Cockcroft-Gault) 98.4 BUN/Creatinine Ratio 8 (6-20) Glucose Level 89 mg/dL (70-99) Calcium Level 8.6 mg/dL (8.5-10.1) Total Bilirubin 1.0 mg/dL (0.2-1.0) Aspartate Amino Transf (AST/SGOT) 24 U/L (15-37) Alanine Aminotransferase (ALT/SGPT) 26 U/L (16-63) Alkaline Phosphatase 59 U/L (46-116) Total Protein 6.9 g/dL (6.4-8.2) Albumin 3.4 g/dL (3.4-5.0) Albumin/Globulin Ratio 1.0 (1.0-1.7) Medications Current Medications Sodium Chloride 1,000 ml @ 100 mls/hr Q10H IV Last administered on 01/08/17 02:23; Start 01/06/17 at 01:00 Lorazepam (Ativan) 2 mg PRN Q6HRS PRN IV AGITATION; Start 01/06/17 at 01:00; Stop 01/06/17 at 01:22; Status DC Morphine Sulfate 2 mg PRN Q2HR PRN IV SEVERE PAIN; Start 01/06/17 at 01:00; Stop 01/06/17 at 01:35; Status DC Lorazepam (Ativan) 2 mg Q6HRS IV Last administered on 01/07/17 05:31; Start at 06:00; Stop 01/07/17 at 16:37; Status DC Fentanyl Citrate (Fentanyl 2ml Vial) 50 mcg PRN Q2HR PRN IV SEVERE PAIN Last administered on 01/07/17 05:31; Start 01/06/17 at 01:45; Stop 01/07/17 at 16:37 ; Status DC Nicotine (Nicoderm Cq 14mg) 1 patch DAILY TD Last administered on 01/08/17 09: 20; Start 01/06/17 at 02:30 Ondansetron HCl (Zofran) 4 mg PRN Q6HRS PRN IV NAUSEA/VOMITING Last administered on 01/08/17 02:31; Start 01/06/17 at 09:15 Fentanyl (Duragesic 75mcg/ Hr Patch) 1 patch Q3DAYS TD Last administered on 14:09; Start 01/06/17 at 14:00 Gemfibrozil (Lopid) 600 mg BIDBFRMEAL PO Last administered on 01/08/17 07:38; Start 01/06/17 at 16:30 Acetaminophen/ Hydrocodone Bitart (Lortab 7.5/325) 1 tab PRN Q4HRS PRN PO PAIN Last administered on 01/08/17 12:03; Start 01/06/17 at 14:15 Ondansetron HCl (Zofran Odt) 4 mg PRN Q8HRS PRN PO NAUSEA Last administered on 01/07/17 12:59; Start 01/06/17 at 14:15; Stop 01/07/17 at 18:45; Status DC Dicyclomine HCl (Bentyl) 20 mg QIDACHS PO Last administered on 01/08/17 11:57 ; Start 01/06/17 at 16:30 Pantoprazole Sodium (Protonix) 40 mg DAILYAC PO Last administered on 01/07/17 11:39; Start 01/07/17 at 11:30; Stop 01/07/17 at 16:37; Status DC Calcium Carbonate/ Glycine (Tums) 500 mg PRN AFTMEALHC PRN PO INDIGESTION Last administered on 01/07/17 20:19; Start 01/07/17 at 10:45 Fentanyl Citrate (Fentanyl 2ml Vial) 50 mcg PRN Q6HRS PRN IV SEVERE PAIN Last administered on 01/08/17 14:08; Start 01/07/17 at 20:15 Lorazepam (Ativan) 0.5 mg Q6HRS IV ; Start 01/07/17 at 18:00; Stop 01/07/17 at 18:00; Status DC Pantoprazole Sodium (Protonix) 40 mg BIDAC PO Last administered on 01/08/17 07 :38; Start 01/07/17 at 17:00 Lorazepam (Ativan) 0.5 mg PRN Q6HRS PRN IV ANXIETY / AGITATION; Start 01/07/17 at 18:00 Ondansetron HCl (Zofran Odt) 8 mg PRN Q8HRS PRN PO NAUSEA; Start 01/07/17 at 18 :45 Prochlorperazine Edisylate (Compazine) 10 mg PRN Q8HRS PRN IV NAUSEA/VOMITING Last administered on 01/07/17t 23:30; Start 01/07/17 at 23:15 Active Scripts Active Dicyclomine Hcl 20 Mg Tablet 1 Tab PO QID Zofran Odt (Ondansetron) 4 Mg Tab.rapdis 1 Tab SL Q8HRS PRN Reported Hydrocodone-Apap 7.5-325 (Hydrocodone Bit/Acetaminophen) 1 Each Tablet 1 Tab PO PRN Q4HRS PRN Vitals/I & O Vital Sign - Last 24 Hours 01/07/17 01/07/17 01/07/17 01/07/17 19:34 19:50 20:22 20:30 Temp 98.3 98.3 Pulse 109 Resp 20 20 20 B/P (MAP) 136/95 (109) Pulse Ox 97 O2 Delivery Room Air Room Air Room Air 01/07/17 01/07/17 01/08/17 01/08/17 20:34 23:18 02:29 03:30 Temp 98.1 98.1 Pulse 103 98 Resp 20 22 20 20 B/P (MAP) 149/97 (114) 151/93 (112) Pulse Ox 95 95 95 96 O2 Delivery Room Air Room Air Room Air 01/08/17 01/08/17 01/08/17 01/08/17 07:00 07:40 08:00 09:24 Temp 97.8 97.8 Pulse 91 Resp 16 20 B/P (MAP) 136/80 (98) Pulse Ox 96 96 O2 Delivery Room Air Room Air Room Air Room Air 01/08/17 01/08/17 01/08/17 01/08/17 11:00 12:03 13:37 14:08 Temp 97.8 97.8 Pulse 103 Resp 16 18 18 B/P (MAP) 134/79 (97) Pulse Ox 95 95 95 O2 Delivery Room Air Room Air Room Air Room Air 01/08/17 01/08/17 14:38 15:00 Temp 97.8 97.8 Pulse 96 Resp 16 18 B/P (MAP) 171/95 (120) Pulse Ox 95 98 O2 Delivery Room Air Room Air Intake and Output 01/07/17 01/07/17 01/08/17 15:00 23:00 07:00 Intake Total 1800 ml 1360 ml Balance 1800 ml 1360 ml MARKUS HINES MD January 08, 2017 16:30
--- NOTE | 2017-01-08 17:14 | DISCH ---
DISCHARGE INSTRUCTIONS Condition on Discharge Condition on Discharge: Stable Activity After Discharge Activity Instructions for Disc: No restrictions, Activity as tolerated Weight Bearing Status after Di: As tolerated Diet after Discharge Diet after Discharge: [place] Diet Texture: Regular Contacting the DRJohn after DC Call your doctor for: If your condition worsens Follow-Up Follow up with: Dr. Jacob Blackmon at [facility] MARKUS BLACKMON MD January 08, 2017 17:14
[2017-01-08 19:43] VITALS: BP 156/95
--- NOTE | 2017-01-15 10:36 | PDOC3 ---
Discharge Summary* Date of Admission: January 06, 2017 Date of Discharge: January 08, 2017 Admitting Diagnosis Acute on chronic pancreatitis Abdominal pain Final Diagnosis Hematemesis Chronic pancreatitis Gastric ulcer Abdominal pain CONSULTS GI Brief Hospital Course Mr. Rasmussen is a 31 old male who presented with acute abdominal pain. Patient has history of recurrent acute on chronic pancreatitis. Patient was admitted by hospitalist service who later transferred care to mo, his primary care physician. Patient admitted for presumed acute on chronic pancreatitis although his lipase and CT scan of abdomen were normal. Patient started on pain control, made npo then later advanced to clear liquid diet. On day 2 of hospitalization, patient had witnessed episode of coffee ground emesis. Gastric occult was positive. Patient started on ppi bid, which resolved his emesis and helped with abdominal pain. Blood count was stable the following day and patient was discharged in stable condition, on a regular normal diet. Patient to f/u closely with pcp. The plan is for patient to have GI consult as outpatient for further w/u of suspected gastric ulcer and possible w/u of chronic pancreatitis with EUS. Of note, patient has strong history of alcohol abuse which provoked initial onset of pancreatitis. He has been sober for a few months now, but did have elevated triglycerides (303), which may be a factor in pancreatitis. However, I suspect his pain may be mostly due to suspected gastric ulcer as opposed to pancreatitis. Further w/u as outpt in process. Disposition/Orders: D/C to Home CONDITION AT DISCHARGE: Improved, Stable Diet: Regular Scheduled Dicyclomine Hcl (Dicyclomine Hcl), 1 TAB PO QID Scheduled PRN Hydrocodone Bit/Acetaminophen (Hydrocodone-Apap 7.5-325 ), 1 TAB PO PRN Q4HRS PRN for PAIN, (Reported) Ondansetron (Zofran Odt), 1 TAB SL Q8HRS PRN for NAUSEA PCP Dr. Filiberto Blackmon at [place] [facility] [place] [place] Time Spent Total time spent with patient [] minutes for coordination of care, counseling, and education. FILIBERTO BLACKMON MD January 15, 2017 10:36
== END 2017-01-08 22:00 | disposition home or self-care (01) | DRG 377 ==
LOC: 5 NORTH 00:48
PROVIDERS: ADMIT Family Medicine; ATTEND Family Medicine
DX: K29.71 Gastritis, unspecified, with bleeding (principal); K85.90 Acute pancreatitis without necrosis or infection, unspecified; F11.20 Opioid dependence, uncomplicated; K86.1 Other chronic pancreatitis; K58.9 Irritable bowel syndrome, unspecified; E78.1 Pure hyperglyceridemia; E78.5 Hyperlipidemia, unspecified; F10.20 Alcohol dependence, uncomplicated; Z88.1 Allergy status to other antibiotic agents; Z88.5 Allergy status to narcotic agent; Z88.0 Allergy status to penicillin; Z88.8 Allergy status to other drugs, medicaments and biological substances
CPT/HCPCS: 36415; 80053; 80061; 82150; 82271; 83615; 83690; 85027; J0780; J2060; J2405; J3010; J7030; Q0162

== ENCOUNTER 2017-01-16 12:24 | Emergency (ER) | payer SELFPAY ==
[~2017-01-16] VITALS: Ht 177.8 cm; Wt 87.1 kg
[~2017-01-16 12:24] MED LIST changes: +HYDR-2762 PO
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
[2017-01-16] MEDS ORDERED: oxyCODONE/APAP 5/325 1 TAB TABLET PO ONE (13:15)
[2017-01-16] MEDS ORDERED: SUCRALFATE 1 GM TABLET. PO ONE (13:15)
[2017-01-16] MEDS ORDERED: FAMOTIDINE 20 MG TABLET. PO ONE (13:15)
[2017-01-16 13:30] VITALS: BP 155/87
[2017-01-16] MEDS ORDERED: SUCR1TAB29 PO (13:31)
[2017-01-16] MEDS ORDERED: FAMO-63 PO (13:31)
== END 2017-01-16 13:47 | disposition home or self-care (01) ==
LOC: ER 12:24
DX: R10.13 Epigastric pain (principal); G89.29 Other chronic pain; Z91.14 Patient's other noncompliance with medication regimen; K58.9 Irritable bowel syndrome, unspecified; Z88.0 Allergy status to penicillin; Z88.1 Allergy status to other antibiotic agents; Z88.5 Allergy status to narcotic agent; Z88.6 Allergy status to analgesic agent
CPT/HCPCS: 99283

== ENCOUNTER 2017-10-06 10:54 | Emergency (ER) | payer SELFPAY ==
[2017-10-06 11:51] LABS: BILIRUBIN,URINE NEGATIVE (NEG); CLARITY,URINE CLEAR; COLOR,URINE YELLOW; GLUCOSE,URINE NEGATIVE (NEG); NITRITE,URINE NEGATIVE (NEG); PROTEIN,URINE 30 mg/dL (NEG-TRACE)
[2017-10-06 12:00] LABS: BACTERIA,URINE FEW /HPF (0-FEW); SQUAMOUS EPITHELIAL CELL,UR OCC /LPF
[2017-10-06 12:14] LABS: ADD MAN DIFF? NO
[2017-10-06 12:17] LABS: BASO # 0.1 x10^3/uL (0.0-0.2); BASO % 1 % (0-3); EOS # 0.1 x10^3/uL (0.0-0.7); EOS % 1 % (0-3); HEMATOCRIT 47.4 % (39.0-53.0); LYMPH % 19 % (24-48); MEAN CORPUSCULAR HEMOGLOBIN 31 pg (25-35); MEAN CORPUSCULAR HGB CONC 34 g/dL (31-37); MEAN CORPUSCULAR VOLUME 92 fL (79-100); MONO # 0.8 x10^3/uL (0.0-1.1); MONO % 8 % (0-9); NEUT # 7.5 x10^3uL (1.8-7.7); NEUT % 72 % (31-73); PLATELET COUNT 248 x10^3/uL (140-400); RED BLOOD COUNT 5.18 x10^6/uL (4.30-5.70); RED CELL DISTRIBUTION WIDTH 13.3 % (11.5-14.5); WHITE BLOOD COUNT 10.4 x10^3/uL (4.0-11.0)
[2017-10-06] MEDS: IV NORMAL SALINE 1000ML BAG 1,000 ML IV ×2 (12:17)
[2017-10-06] MEDS: HALOPERIDOL LACTATE 5 MG/ML VIAL. IVP ×2 (12:17)
[2017-10-06 12:28] LABS: ANION GAP 8 (6-14); BLOOD UREA NITROGEN 14 mg/dL (8-26); CARBON DIOXIDE 32 mmol/L (21-32); CHLORIDE 98 mmol/L (98-107); CREATININE 1.1 mg/dL (0.7-1.3); GFR 78.1; GLUCOSE 95 mg/dL (70-99); POTASSIUM 5.4 mmol/L (3.5-5.1); SODIUM 138 mmol/L (136-145)
[2017-10-06 12:35] LABS: ALBUMIN 4.1 g/dL (3.4-5.0); ALK PHOS 83 U/L (46-116); ALT (SGPT) 21 U/L (16-63); AST (SGOT) 18 U/L (15-37); DIRECT BILIRUBIN 0.1 mg/dL (0.0-0.2); LIPASE 299 U/L (73-393); TOTAL BILIRUBIN 0.7 mg/dL (0.2-1.0)
[2017-10-06] MEDS ORDERED: KETOROLAC 30 MG/ML INJ. IV ×2 (13:30)
[2017-10-06] MEDS ORDERED: LIDO:MAALOX:DONNATAL 1:1:1 15 ML SINGLE DOSE SWSW ×2 (13:30)
[2017-10-06] MEDS ORDERED: SODIUM POLYSTYRENE SULFONATE 15 GM/60 ML ORAL.SUSP. PO ×2 (13:30)
== END 2017-10-06 13:14 | disposition home or self-care (01) ==
LOC: ER 10:54
DX: R10.13 Epigastric pain (principal); K58.9 Irritable bowel syndrome, unspecified; F12.10 Cannabis abuse, uncomplicated; Z88.0 Allergy status to penicillin; Z88.1 Allergy status to other antibiotic agents; Z88.5 Allergy status to narcotic agent; Z88.8 Allergy status to other drugs, medicaments and biological substances; Z88.6 Allergy status to analgesic agent
CPT/HCPCS: 36415; 80048; 80076; 81001; 83690; 85025; 96361; 96374; 99284-25; J1630; J7030

== ENCOUNTER → 2018-04-02 | Outpatient (CLI) | payer OTHER | END | disposition home or self-care (01) | LOC: MRI 13:02 | DX: M12.88 Other specific arthropathies, not elsewhere classified, other specified site (principal); E78.5 Hyperlipidemia, unspecified; Z87.891 Personal history of nicotine dependence | CPT/HCPCS: 72148 ==